=== PATIENT | male | born 1980 | race Two or more races ===

== ENCOUNTER 2020-06-17 23:08 | Inpatient (IN) | payer MEDICAID, OTHER ==
[~2020-06-17] VITALS: Ht 170.2 cm; Wt 106.1 kg
[2020-06-17] MEDS ORDERED: ALBU18HF2 INH (23:20)
[2020-06-17] MEDS ORDERED: ALBUTEROL SULFATE 8 GM HFA.AER.AD IH PRN (23:30)
[2020-06-17] MEDS ORDERED: IV NORMAL SALINE 1000 ML BAG IV ONE (23:30)
[2020-06-17] MEDS ORDERED: ONDANSETRON 4 MG/2 ML VIAL IV ONE (23:30)
[2020-06-17] MEDS ORDERED: PANTOPRAZOLE SODIUM 40 MG VIAL IV ONE (23:30)
[2020-06-17] MEDS ORDERED: levoFLOXacin 750 MG/D5W 150 ML PIGGYBACK IV ONE (23:30)
[2020-06-17] MEDS ORDERED: DEXAMETHASONE SOD PHOSPHATE 4 MG INJ IV ONE (23:30)
--- NOTE | 2020-06-17 23:30 | NUR ---
PATIENT BIB [facility] FROM HOME FOR C/O SOB. PATIENT IS COVID + X 1 WEEK AND HAS WORSENING SYMPOTOMS OF SOB. PATIENT O2 SAT ON THE FIELD ON RA WAS IN THE 80'S. PLACED ON SIMPLE MASK 10LITER AND O2 UP TO 97%.
[2020-06-17 23:57] LABS: BASOPHILS % (AUTO) 0.4 % (0.0-2.0); HEMATOCRIT 44.1 % (36.7-47.1); HEMOGLOBIN 14.8 g/dL (12.5-16.3); LYMPHOCYTES # (AUTO) 0.9 K/uL (20.0-40.0); LYMPHOCYTES % (AUTO) 20.5 % (20.5-51.5); MEAN CORPUSCULAR HEMOGLOBIN 29.8 uug (23.8-33.4); MEAN CORPUSCULAR HGB CONC 34 g/dL (32.5-36.3); MEAN CORPUSCULAR VOLUME 89.1 fL (73.0-96.2); MONOCYTES # (AUTO) 0.3 K/uL (2.0-10.0); MONOCYTES % (AUTO) 7.2 % (0.0-11.0); NEUTROPHILS % (AUTO) 71.9 % (38.5-71.5); PLATELET COUNT (AUTO) 168 K/uL (152-348); RED BLOOD CELL COUNT(AUTO) 4.95 MIL/uL (4.06-5.63); WHITE BLOOD COUNT (AUTO) 4.2 K/uL (3.6-10.2)
[2020-06-17 23:58] LABS: CREATININE 1.1 mg/dL (0.6-1.3); POTASSIUM 3.7 mmol/L (3.5-5.1)
[2020-06-18] MEDS ORDERED: PANTOPRAZOLE SODIUM 40 MG VIAL ONE ×2 (00:01→08:23)
[2020-06-18] MEDS ORDERED: DEXAMETHASONE SOD PHOSPHATE 10 MG INJ ONE (00:01)
[2020-06-18] MEDS ORDERED: levoFLOXacin 750MG/D5W 150 ML IV ONE (00:02)
[2020-06-18] MEDS ORDERED: ONDANSETRON 4 MG/2 ML VIAL ONE (00:02)
[2020-06-18 00:15] LABS: BILIRUBIN,TOTAL 0.5 mg/dL (0.2-1.0); TOTAL PROTEIN, SERUM 7.2 g/dL (6.4-8.2)
[2020-06-18] MEDS ORDERED: ENOXAPARIN SODIUM 30 MG/0.3 ML DISP.SYRIN SUBCUT ONE (01:00)
[2020-06-18] MEDS ORDERED: ENOXAPARIN SODIUM 30 MG/0.3 ML DISP.SYRIN ONE (01:14)
[2020-06-18 01:23] LABS: *BILIRUBIN,URIN NEGATIVE (NEGATIVE); *BLOOD, URINE NEGATIVE (NEGATIVE); *CLARITY,URINE CLEAR (CLEAR); *COLOR,URINE DARK YELLOW (YELLOW); *KETONES,URINE 1+ (NEGATIVE); LEUKOCYTE ESTERASE ,URINE NEGATIVE (NEGATIVE); NITRITE, URINE NEGATIVE (NEGATIVE); PH,URINE 6.5 (5.0-8.0); UGLUCOSE NEGATIVE (NEGATIVE)
--- NOTE | 2020-06-18 02:00 | NUR ---
DR Jenkins spoke with DR Tafoay regarding admission.
[2020-06-18] MEDS ORDERED: ALBUTEROL SULFATE 8 GM HFA.AER.AD IH PRN (07:00)
[2020-06-18] MEDS: PANTOPRAZOLE SODIUM 40 MG TABLET.DR PO SCH (07:00)
--- NOTE | 2020-06-18 07:05 | NUR ---
Recieved pt from [facility]. Pt in [facility]. Noted with SOB, on 15L NR mask. Pending admission to hospital.
[2020-06-18 08:16] LABS: BASOPHILS % (AUTO) 0.2 % (0.0-2.0); HEMATOCRIT 44.4 % (36.7-47.1); HEMOGLOBIN 14.7 g/dL (12.5-16.3); LYMPHOCYTES # (AUTO) 0.5 K/uL (20.0-40.0); MEAN CORPUSCULAR HEMOGLOBIN 29.7 uug (23.8-33.4); MEAN CORPUSCULAR HGB CONC 33 g/dL (32.5-36.3); MEAN CORPUSCULAR VOLUME 89.8 fL (73.0-96.2); MONOCYTES # (AUTO) 0.3 K/uL (2.0-10.0); MONOCYTES % (AUTO) 6.7 % (0.0-11.0); NEUTROPHILS # (AUTO) 3.8 K/uL (1.8-8.9); NEUTROPHILS % (AUTO) 83.1 % (38.5-71.5); PLATELET COUNT (AUTO) 201 K/uL (152-348); RED BLOOD CELL COUNT(AUTO) 4.95 MIL/uL (4.06-5.63); WHITE BLOOD COUNT (AUTO) 4.6 K/uL (3.6-10.2)
[2020-06-18] MEDS ORDERED: AZITHROMYCIN 500MG/ D5W 250ML IVPB **ER PYXIS ONLY IV ONE (08:23)
[2020-06-18 08:24] LABS: CREATININE 0.8 mg/dL (0.6-1.3); POTASSIUM 4.3 mmol/L (3.5-5.1)
[2020-06-18] MEDS: AZITHROMYCIN IV 500 MG in IV DEXTROSE 5% 250 ML IV SCH (08:30)
[2020-06-18] MEDS ORDERED: PANTOPRAZOLE SODIUM 40 MG TABLET.DR PO ONE (08:37)
[2020-06-18 09:03] LABS: BILIRUBIN,TOTAL 0.5 mg/dL (0.2-1.0); MAGNESIUM 2.4 mg/dL (1.8-2.4); PHOSPHOROUS 3.3 mg/dL (2.5-4.9); TOTAL PROTEIN, SERUM 7.3 g/dL (6.4-8.2)
--- NOTE | 2020-06-18 10:00 | NUR ---
Pt's zhane Dent [phone] provided with updates. Per pt ok to provide information to her. Pt's Radha, contact info
--- NOTE | 2020-06-18 12:23 | NUR ---
Pt noted to be tachypneic and when attempting to feed pt. 02 sat went down to 86%. Dr. Lee made aware, stated to ok for patient to start on hi-flow 02 at 100% and to titrate down. RT made aware.
--- NOTE | 2020-06-18 12:39 | NUR ---
Per Eleanor KIMBALL CN, stated that report has been given and patient is going to [facility]. Eleanor made aware that patient would be started on vapotherm d/t pt's increase work of breathing. Sung RT aware and will set up vapotherm in unit. Per Eleanor no further report to be given as she already gave the report. Packet requested from admitting.
--- NOTE | 2020-06-18 12:45 | NUR ---
ADMITTED FROM HOME VIA ER A 40 YO MALE CAME IN WITH SOB IN ER, ADMITTING DX POSITIVE COVID/PNEUMONIA. AWAKE ALERT AND ORIENTED X3, STILL SHORT OF BREATH ON RA, PLACED ON 40L/M VIA NASAL CANULA SATURATING 93-95%. ROUTINE ADMISSION ASSESSMENT INITIATED. DR RODRIGUEZ NOTIFIED OF ADMISSION. SR ON MONITOR
--- NOTE | 2020-06-18 12:55 | NUR ---
Pt taken to [facility], via dea on 15L of via NRB. No incident noted during transfer. Estefani KIMBALL stated she is the primary nurse. Pt placed on 15L via NRB while in room, while awaiting RT.
[2020-06-18 17:04] VITALS: BP 126/87
--- NOTE | 2020-06-18 17:49 | NUR ---
SEEN BY DR HOOK FOR PULMONARY EVAL, SEE NOTES
[2020-06-18 20:00] VITALS: BP 124/84
[2020-06-18] MEDS ORDERED: REMDESIVIR (CHARGED) 200 MG in IV NORMAL SALINE 210 ML IV ONE (20:00)
--- NOTE | 2020-06-18 20:05 | NUR ---
AWAKE,ALERT X3, 02 HI FLOW AT 40%, NO SOB, COMPLAINED OF LEVEL 2 CHEST PAIN AND GENERALIZED PAIN, NORCO I TAB PO GIVEN.IST DOSE OF RENDESEVIR GIVEN ,NO REACTION NOTED BP 118/70 AFTER BP.RESTING COMFORTABLY,
[2020-06-18] MEDS: DEXAMETHASONE SOD PHOSPHATE 4 MG INJ IV SCH (20:35)
[2020-06-18] MEDS: ENOXAPARIN SODIUM 40 MG/0.4 ML DISP.SYRIN SQ SCH (20:36)
[2020-06-18] MEDS: HYDROCODONE/APAP 5-325MG TABLET PO PRN (22:22)
[2020-06-19 00:58] VITALS: BP 128/84
[2020-06-19 04:00] VITALS: BP 121/84
--- NOTE | 2020-06-19 05:35 | NUR ---
slept at long intervals..pulse oximetry at 340% hi flow, 95.
[2020-06-19] MEDS: PANTOPRAZOLE SODIUM 40 MG TABLET.DR PO SCH (06:06)
[2020-06-19 06:52] LABS: BASOPHILS % (AUTO) 0.1 % (0.0-2.0); HEMATOCRIT 43.8 % (36.7-47.1); HEMOGLOBIN 14.3 g/dL (12.5-16.3); LYMPHOCYTES # (AUTO) 0.8 K/uL (20.0-40.0); LYMPHOCYTES % (AUTO) 15.5 % (20.5-51.5); MEAN CORPUSCULAR HEMOGLOBIN 29.6 uug (23.8-33.4); MEAN CORPUSCULAR HGB CONC 33 g/dL (32.5-36.3); MEAN CORPUSCULAR VOLUME 90.3 fL (73.0-96.2); MONOCYTES # (AUTO) 0.6 K/uL (2.0-10.0); MONOCYTES % (AUTO) 10.6 % (0.0-11.0); NEUTROPHILS # (AUTO) 3.8 K/uL (1.8-8.9); NEUTROPHILS % (AUTO) 73.8 % (38.5-71.5); PLATELET COUNT (AUTO) 269 K/uL (152-348); RED BLOOD CELL COUNT(AUTO) 4.85 MIL/uL (4.06-5.63); WHITE BLOOD COUNT (AUTO) 5.2 K/uL (3.6-10.2)
[2020-06-19 07:36] LABS: BILIRUBIN,DIRECT 0.2 mg/dL (0.0-0.2); BILIRUBIN,TOTAL 0.5 mg/dL (0.2-1.0); CREATININE 0.8 mg/dL (0.6-1.3); POTASSIUM 4.2 mmol/L (3.5-5.1); TOTAL PROTEIN, SERUM 7.2 g/dL (6.4-8.2)
[2020-06-19 08:47] VITALS: BP 125/81
[2020-06-19] MEDS: ONDANSETRON 4 MG/2 ML VIAL IV PRN (08:54)
[2020-06-19] MEDS: HYDROCODONE/APAP 5-325MG TABLET PO PRN (08:55)
[2020-06-19] MEDS: AZITHROMYCIN IV 500 MG in IV DEXTROSE 5% 250 ML IV SCH (10:03)
[2020-06-19 10:09] LABS: ABG BASE EXCESS 1.5 mmol/L; ABG HCO3 25.8 mmol/L; ABG PCO2 39.7 mmHg (35.0-45.0); ABG PH 7.431 (7.350-7.450); ABG PO2 105.2 mmHg (75.0-100.0); ABG SITE LEFT BRACHIAL; ABG TOTAL HEMOGLOBIN 14.9 G/dL (13.5-18.0); COHb 0.7 % (0.5-1.5); MetHb 0.3 % (0.0-1.5); O2Hb 97.3 % (94.0-97.0); VENT MODE HIGH FLOW
[2020-06-19 11:55] VITALS: BP 121/71
[2020-06-19 15:52] VITALS: BP 128/88
[2020-06-19 20:39] VITALS: BP 126/85
[2020-06-19] MEDS: ENOXAPARIN SODIUM 40 MG/0.4 ML DISP.SYRIN SQ SCH (20:39)
[2020-06-19] MEDS: DEXAMETHASONE SOD PHOSPHATE 4 MG INJ IV SCH (20:42)
[2020-06-19] MEDS: REMDESIVIR (CHARGED) 100 MG in IV NORMAL SALINE 100 ML IV SCH (20:43)
--- NOTE | 2020-06-19 21:45 | NUR ---
Received pt lying in bed. No acute distress noted. Vitals WNL on 40L high Flow @100% saturating @ 95%. Mild SOB noted upon exertion. RAC 18G IV intact and flushed. All due medication administered. Dose of remdesivir administered, no adverse reaction noted. BP 112/74. All needs attended too, snacks provided.. Safety measures and covid isolation maintained. Will continue to monitor.
[2020-06-20] VITALS (9 sets, daily range): BP systolic 105–118; BP diastolic 63–77
--- NOTE | 2020-06-20 00:10 | NUR ---
PLASMA TRANSFUSION STARTED,PRODUCT UNABLE TO SCAN ,[employer] NOTIFIED, VERBALIZED JUST TO USE PAPER. VITAL SIGNS STABLE.
--- NOTE | 2020-06-20 01:20 | NUR ---
Administered Convalescent Plasma, tolerated well, no adverse reactions noted. No acute distress noted. Denies any pain at the moment.Pt vitals WNL O2 saturation @97%. Patient is resting comfortably. Safety measures in place. Will continue to monitor through the night.
[2020-06-20] MEDS: PANTOPRAZOLE SODIUM 40 MG TABLET.DR PO SCH (06:10)
--- NOTE | 2020-06-20 07:10 | NUR ---
Received patient on bed, awake and alert, cooperative with care. Patient on hi flow at 30L via NC saturating at 97%. Patient has right antecubital IV access, intact and patent. Patient has no s/s of respiratory distress, no chest pain reported. Will continue to monitor.
[2020-06-20 07:11] LABS: BASOPHILS % (AUTO) 0.1 % (0.0-2.0); HEMATOCRIT 42.7 % (36.7-47.1); HEMOGLOBIN 14.2 g/dL (12.5-16.3); LYMPHOCYTES # (AUTO) 0.9 K/uL (20.0-40.0); LYMPHOCYTES % (AUTO) 14.9 % (20.5-51.5); MEAN CORPUSCULAR HEMOGLOBIN 29.9 uug (23.8-33.4); MEAN CORPUSCULAR HGB CONC 33 g/dL (32.5-36.3); MEAN CORPUSCULAR VOLUME 90.2 fL (73.0-96.2); MONOCYTES # (AUTO) 0.7 K/uL (2.0-10.0); MONOCYTES % (AUTO) 11.4 % (0.0-11.0); NEUTROPHILS # (AUTO) 4.7 K/uL (1.8-8.9); NEUTROPHILS % (AUTO) 73.6 % (38.5-71.5); PLATELET COUNT (AUTO) 316 K/uL (152-348); RED BLOOD CELL COUNT(AUTO) 4.74 MIL/uL (4.06-5.63); WHITE BLOOD COUNT (AUTO) 6.4 K/uL (3.6-10.2)
[2020-06-20 07:29] LABS: BILIRUBIN,DIRECT 0.1 mg/dL (0.0-0.2); BILIRUBIN,TOTAL 0.6 mg/dL (0.2-1.0); CREATININE 0.8 mg/dL (0.6-1.3); MAGNESIUM 2.4 mg/dL (1.8-2.4); POTASSIUM 4.3 mmol/L (3.5-5.1); TOTAL PROTEIN, SERUM 6.8 g/dL (6.4-8.2)
[2020-06-20] MEDS: AZITHROMYCIN IV 500 MG in IV DEXTROSE 5% 250 ML IV SCH (08:15)
--- NOTE | 2020-06-20 18:45 | NUR ---
Patient in bed, laying comfortably. No s/s of respiratory distress. No chest pain reported. Still on hi flow at 30LPM via NC, saturating at 96%. Right antecubital IV access, intact and patent. Medications tolerated well. Will endorse to night club manager nurse.
[2020-06-20] MEDS: ENOXAPARIN SODIUM 40 MG/0.4 ML DISP.SYRIN SQ SCH (20:26)
[2020-06-20] MEDS: ACETAMINOPHEN 325 MG TABLET PO PRN (20:27)
[2020-06-20] MEDS: DEXAMETHASONE SOD PHOSPHATE 4 MG INJ IV SCH (20:27)
[2020-06-20] MEDS: REMDESIVIR (CHARGED) 100 MG in IV NORMAL SALINE 100 ML IV SCH ×2 (20:27→20:29)
--- NOTE | 2020-06-20 20:30 | NUR ---
RECEIVED PATIENT AWAKE IN BED. A/O X4. DENIES PAIN OR DISCOMFORT. NO RESP. DISTRESS NOTED. ON TELE SR. ON O2 30L HIGH FLOW O2. CALL LIGHT IN REACH. ALL NEEDS ATTENDED, WILL CONTINUE TO MONITOR AND ASSESS.
[2020-06-21 00:51] VITALS: BP 122/79
[2020-06-21] MEDS: ZOLPIDEM 5 MG TABLET PO PRN (01:00)
[2020-06-21 05:54] VITALS: BP 113/70
[2020-06-21] MEDS: PANTOPRAZOLE SODIUM 40 MG TABLET.DR PO SCH (06:43)
[2020-06-21 06:51] LABS: BASOPHILS % (AUTO) 0.1 % (0.0-2.0); HEMATOCRIT 42.4 % (36.7-47.1); HEMOGLOBIN 14.1 g/dL (12.5-16.3); LYMPHOCYTES # (AUTO) 1.1 K/uL (20.0-40.0); LYMPHOCYTES % (AUTO) 12.8 % (20.5-51.5); MEAN CORPUSCULAR HEMOGLOBIN 29.8 uug (23.8-33.4); MEAN CORPUSCULAR HGB CONC 33 g/dL (32.5-36.3); MEAN CORPUSCULAR VOLUME 89.8 fL (73.0-96.2); MONOCYTES % (AUTO) 12.2 % (0.0-11.0); NEUTROPHILS # (AUTO) 6.2 K/uL (1.8-8.9); NEUTROPHILS % (AUTO) 74.9 % (38.5-71.5); PLATELET COUNT (AUTO) 331 K/uL (152-348); RED BLOOD CELL COUNT(AUTO) 4.72 MIL/uL (4.06-5.63); WHITE BLOOD COUNT (AUTO) 8.3 K/uL (3.6-10.2)
--- NOTE | 2020-06-21 07:00 | NUR ---
RECEIVED REPORT ON PT, PT RESTING IN BED. AWAKE ALERT AND ORIENTED X 4. PT HAS AN IV ON THE FOREARM 22G. PT ON HIGH FLOW O2 30L SATURATING AT 100%. NO SIGNS OF DISTRESS NOTED AT THIS TIME. PT ON COVID ISOLATION PRECAUTIONS, SAFETY PRECAUTIONS IN PLACE. BED IN LOW AND LOCK POSITION, WILL CONTINUE TO MONITOR.
[2020-06-21 07:06] LABS: BILIRUBIN,DIRECT 0.2 mg/dL (0.0-0.2); BILIRUBIN,TOTAL 0.7 mg/dL (0.2-1.0); CREATININE 0.8 mg/dL (0.6-1.3); MAGNESIUM 2.2 mg/dL (1.8-2.4); PHOSPHOROUS 4.2 mg/dL (2.5-4.9); POTASSIUM 4.1 mmol/L (3.5-5.1); TOTAL PROTEIN, SERUM 6.8 g/dL (6.4-8.2)
[2020-06-21] MEDS: AZITHROMYCIN IV 500 MG in IV DEXTROSE 5% 250 ML IV SCH (08:31)
[2020-06-21 11:53] VITALS: BP 102/64
--- NOTE | 2020-06-21 14:20 | NUR ---
Discontinued right forearm 22g IV. Midline was inserted on the left upper extremity 18g.
[2020-06-21] MEDS: ACETAMINOPHEN 325 MG TABLET PO PRN ×2 (15:25→20:35)
[2020-06-21 16:38] VITALS: BP 128/80
--- NOTE | 2020-06-21 18:05 | NUR ---
SPOKE TO PATIENT'S NIECE, GAVE UPDATE ON PATIENT. WILL CONTINUE TO MONITOR.
--- NOTE | 2020-06-21 18:22 | NUR ---
PATIENT IN BED RESTING, PATIENT ON HIGH FLOW TITRATED TO 25L, 100%, SATURATING AT 95%. NO SIGNS OF DISTRESS NOTED. LEFT UPPER EXTREMITY MIDLINE, 18G. SPUTUM CULTURE COLLECTED. BED IN LOW AND LOCKED POSITION, ISOLATION AND SAFETY PRECAUTIONS IN PLACE, WILL ENDORSE TO ONCOMING NURSE.
[2020-06-21 20:03] VITALS: BP 141/85
[2020-06-21] MEDS: ENOXAPARIN SODIUM 40 MG/0.4 ML DISP.SYRIN SQ SCH (20:17)
[2020-06-21] MEDS: DEXAMETHASONE SOD PHOSPHATE 4 MG INJ IV SCH (20:26)
--- NOTE | 2020-06-21 20:30 | NUR ---
PATIENT AWAKE IN BED. A/O X4. FAROESE SPEAKING, BUT ABLE TO MAKE NEEDS KNOWN. PATIENT STATED HE FEELS LIKE HE IS GETTING A FEVER. TEMPERATURE NOTED. 101.8, COOLING MEASURES APPLIED, TYLENOL 650MG PO PRN ADMINISTERED, URINE COLLECTED AND SENT TO LAB ORDERED PER MD. ALL OTHER VSS. ON HIGH FLOW 25L SATING 100%. DENIES ANY SOB. NO RESP. DISTRESS NOTED. CALL LIGHT IN REACH. ON ISOLATION FOR COVID. ALL NEEDS ATTENDED. WILL CONTINUE TO MONITOR AND ASSESS.
--- NOTE | 2020-06-21 22:15 | NUR ---
PATIENT AWAKE IN BED. TEMPERATURE 97.2. WILL CONTINUE TO MONITOR AND ASSESS.
[2020-06-22 00:07] VITALS: BP 117/74
[2020-06-22 04:03] VITALS: BP 115/71
[2020-06-22] MEDS: PANTOPRAZOLE SODIUM 40 MG TABLET.DR PO SCH (06:11)
--- NOTE | 2020-06-22 07:30 | NUR ---
received report on patient. pt alwake alert and oriented x4. patient resting in bed, High Flow O2 via NC 2L at 100%. no signs of distress noted. pt had a left upper extremity midline 18g. pt on isolation precautions. safety precautions in place. Will continue to monitor. Addendum: 06/22/20 at 1207 by LUCAS LOPEZ RN High Flow O2 via NC 20L at 100%
[2020-06-22 07:48] LABS: BASOPHILS % (AUTO) 0.1 % (0.0-2.0); EOSINOPHILS % (AUTO) 0.1 % (0.0-7.0); HEMATOCRIT 42.4 % (36.7-47.1); HEMOGLOBIN 14.5 g/dL (12.5-16.3); LYMPHOCYTES % (AUTO) 11.2 % (20.5-51.5); MEAN CORPUSCULAR HEMOGLOBIN 30.3 uug (23.8-33.4); MEAN CORPUSCULAR HGB CONC 34 g/dL (32.5-36.3); MEAN CORPUSCULAR VOLUME 88.6 fL (73.0-96.2); MONOCYTES # (AUTO) 0.8 K/uL (2.0-10.0); MONOCYTES % (AUTO) 9.1 % (0.0-11.0); NEUTROPHILS # (AUTO) 6.9 K/uL (1.8-8.9); NEUTROPHILS % (AUTO) 79.5 % (38.5-71.5); PLATELET COUNT (AUTO) 313 K/uL (152-348); RED BLOOD CELL COUNT(AUTO) 4.79 MIL/uL (4.06-5.63); WHITE BLOOD COUNT (AUTO) 8.7 K/uL (3.6-10.2)
[2020-06-22 08:16] LABS: BILIRUBIN,DIRECT 0.3 mg/dL (0.0-0.2); BILIRUBIN,TOTAL 0.7 mg/dL (0.2-1.0); CREATININE 0.8 mg/dL (0.6-1.3); MAGNESIUM 2.3 mg/dL (1.8-2.4); PHOSPHOROUS 3.8 mg/dL (2.5-4.9); POTASSIUM 4.3 mmol/L (3.5-5.1); TOTAL PROTEIN, SERUM 6.9 g/dL (6.4-8.2)
[2020-06-22] MEDS: AZITHROMYCIN IV 500 MG in IV DEXTROSE 5% 250 ML IV SCH (08:49)
[2020-06-22] MEDS: REMDESIVIR (CHARGED) 100 MG in IV NORMAL SALINE 100 ML IV SCH (10:54)
--- NOTE | 2020-06-22 11:50 | NUR ---
Patient's O2 was changed to nonrebreather at 15L, pt tolerating well. No signs of distress noted. Will continue to monitor.
[2020-06-22 12:59] VITALS: BP 113/74
[2020-06-22] MEDS: HYDROCODONE/APAP 5-325MG TABLET PO PRN ×3 (15:02→16:42)
[2020-06-22 16:23] VITALS: BP 136/83
--- NOTE | 2020-06-22 18:32 | NUR ---
Patient awake alert and oriented x 4. Patient on O2 via nonrebreather at 15L, saturating at 99%, no signs of distress noted at this time. Patient on a threat monitoring analyst, NSR. IV midline on the left upper extremity 18g. Pt. uses urinal at bedside, skin intact. COVID isolation and safety precautions in place. Will endorse to oncoming nurse.
[2020-06-22 20:21] VITALS: BP 134/86
--- NOTE | 2020-06-22 21:00 | NUR ---
Received patient in bed resting. AAOx4. Pt on 15L NRBM denies SOB. No s/s of acute distress noted at this time. Pt febrile 102.8, will administer medication per order and provide cooling measures. NENA midline patent and intact. quality control inspector in place. Isolation and safety precautions in place.
[2020-06-22] MEDS: ENOXAPARIN SODIUM 40 MG/0.4 ML DISP.SYRIN SQ SCH (21:17)
[2020-06-22] MEDS: DEXAMETHASONE SOD PHOSPHATE 4 MG INJ IV SCH (21:18)
[2020-06-22] MEDS: ACETAMINOPHEN 325 MG TABLET PO PRN (21:20)
[2020-06-23 00:06] VITALS: BP 122/78
[2020-06-23] MEDS: HYDROCODONE/APAP 5-325MG TABLET PO PRN ×3 (03:02→16:37)
[2020-06-23] MEDS: MAGNESIUM HYDROXIDE 30 ML LIQUID UDC PO PRN (03:09)
[2020-06-23 04:15] VITALS: BP 113/77
[2020-06-23] MEDS: PANTOPRAZOLE SODIUM 40 MG TABLET.DR PO SCH (06:04)
[2020-06-23 07:14] LABS: BASOPHILS % (AUTO) 0.1 % (0.0-2.0); HEMATOCRIT 42.2 % (36.7-47.1); HEMOGLOBIN 14.5 g/dL (12.5-16.3); LYMPHOCYTES # (AUTO) 0.7 K/uL (20.0-40.0); LYMPHOCYTES % (AUTO) 9.1 % (20.5-51.5); MEAN CORPUSCULAR HEMOGLOBIN 30.5 uug (23.8-33.4); MEAN CORPUSCULAR HGB CONC 34 g/dL (32.5-36.3); MEAN CORPUSCULAR VOLUME 88.6 fL (73.0-96.2); MONOCYTES # (AUTO) 0.6 K/uL (2.0-10.0); MONOCYTES % (AUTO) 7.6 % (0.0-11.0); NEUTROPHILS # (AUTO) 6.5 K/uL (1.8-8.9); NEUTROPHILS % (AUTO) 83.2 % (38.5-71.5); PLATELET COUNT (AUTO) 349 K/uL (152-348); RED BLOOD CELL COUNT(AUTO) 4.76 MIL/uL (4.06-5.63); WHITE BLOOD COUNT (AUTO) 7.8 K/uL (3.6-10.2)
[2020-06-23 07:21] LABS: CREATININE 0.8 mg/dL (0.6-1.3); MAGNESIUM 2.7 mg/dL (1.8-2.4); PHOSPHOROUS 3.9 mg/dL (2.5-4.9); POTASSIUM 4.9 mmol/L (3.5-5.1)
[2020-06-23 08:54] LABS: BILIRUBIN,DIRECT 0.5 mg/dL (0.0-0.2); BILIRUBIN,TOTAL 0.8 mg/dL (0.2-1.0); TOTAL PROTEIN, SERUM 6.7 g/dL (6.4-8.2)
[2020-06-23] MEDS: REMDESIVIR (CHARGED) 100 MG in IV NORMAL SALINE 100 ML IV SCH (09:55)
[2020-06-23 13:23] VITALS: BP 112/62
--- NOTE | 2020-06-23 16:35 | NUR ---
PT RECEIVED AWAKE ALERT AND RESPONSIVE ON 15LPM NON REBREATHER MASK SHOWING NO SIGNS OF RESPIRATORY DISTRESS. PT PLACED ON 6LPM NASAL CANULA WITH BUBBLE HUMIDIFIER AND IS TOLERATING IT FINE WITHOUT SOB. SPO2 MAINTAINING AT 94%. WILL CONTINUE TO MONITOR.
[2020-06-23 16:39] VITALS: BP 131/79
[2020-06-23] MEDS ORDERED: MIRALAX 17 GM POWD.PACK PO PRN (18:45)
[2020-06-23 20:00] VITALS: BP 122/77
[2020-06-23] MEDS: DEXAMETHASONE SOD PHOSPHATE 4 MG INJ IV SCH (20:28)
[2020-06-23] MEDS: ENOXAPARIN SODIUM 40 MG/0.4 ML DISP.SYRIN SQ SCH (20:28)
--- NOTE | 2020-06-23 20:30 | NUR ---
Patient is in bed, alert and oriented. On 15 LPM of O2 via nonrebreather mask. Saturation is 100%. Denies any c/o pain at this time. IV on NENA intact and patent. COVID isolation precaution enforced. Needs attended and met. Will continue to monitor.
[2020-06-23] MEDS: ACETAMINOPHEN 325 MG TABLET PO PRN (20:32)
[2020-06-23] MEDS: GUAIFENESIN/CODEINE 5 ML LIQUID UDC PO PRN (23:55)
[2020-06-23] MEDS: ZOLPIDEM 5 MG TABLET PO PRN (23:56)
[2020-06-24] VITALS (7 sets, daily range): BP systolic 98–134; BP diastolic 69–78
--- NOTE | 2020-06-24 00:15 | NUR ---
Patient was complaining of dry cough and difficulty sleeping. AIRCRAFT STRUCTURAL REPAIR MECHANIC notified and obtained order for Robitussin with codeine. Robitussin and Ambien given as ordered, will monitor for effectiveness.
--- NOTE | 2020-06-24 06:38 | NUR ---
Patient sleeping in bed, arousable to name. Remains on 15 LPM of O2 via NR mask. Saturating at 99%. Patient is afebrile. Denies any c/o pain at this time. On IVF at KVO, midline site on NENA intact and patent. Remains on COVID 19 precautions. Needs attended and met. Will continue to monitor.
[2020-06-24 06:45] LABS: BASOPHILS % (AUTO) 0.6 % (0.0-2.0); HEMATOCRIT 39.8 % (36.7-47.1); HEMOGLOBIN 13.8 g/dL (12.5-16.3); LYMPHOCYTES # (AUTO) 0.7 K/uL (20.0-40.0); LYMPHOCYTES % (AUTO) 8.6 % (20.5-51.5); MEAN CORPUSCULAR HEMOGLOBIN 30.7 uug (23.8-33.4); MEAN CORPUSCULAR HGB CONC 35 g/dL (32.5-36.3); MEAN CORPUSCULAR VOLUME 88.9 fL (73.0-96.2); MONOCYTES # (AUTO) 0.6 K/uL (2.0-10.0); MONOCYTES % (AUTO) 7.2 % (0.0-11.0); NEUTROPHILS # (AUTO) 6.6 K/uL (1.8-8.9); NEUTROPHILS % (AUTO) 83.6 % (38.5-71.5); PLATELET COUNT (AUTO) 331 K/uL (152-348); RED BLOOD CELL COUNT(AUTO) 4.48 MIL/uL (4.06-5.63); WHITE BLOOD COUNT (AUTO) 7.9 K/uL (3.6-10.2)
[2020-06-24] MEDS: PANTOPRAZOLE SODIUM 40 MG TABLET.DR PO SCH (06:47)
[2020-06-24 06:58] LABS: CREATININE 0.8 mg/dL (0.6-1.3); MAGNESIUM 2.3 mg/dL (1.8-2.4); PHOSPHOROUS 3.9 mg/dL (2.5-4.9); POTASSIUM 4.4 mmol/L (3.5-5.1)
[2020-06-24 07:03] LABS: BILIRUBIN,DIRECT 0.2 mg/dL (0.0-0.2); BILIRUBIN,TOTAL 0.6 mg/dL (0.2-1.0); TOTAL PROTEIN, SERUM 6.9 g/dL (6.4-8.2)
--- NOTE | 2020-06-24 08:00 | NUR ---
RESTING IN BED WITH O2 AT 15LITERS NRM WITH NO SOB AT THIS TIME ALERT AND VERBALLY RESPONSIVE DENIES DISCOMFORTS CALL LIGHTS AND PERSONAL BELONGINGS ARE WITHIN EASY REACH AT THIS TIME MADE COMFORTABLE WILL CONTINUE TO OBSERVE.
--- NOTE | 2020-06-24 13:29 | NUR ---
PATIENT SEEN AND EXAMINED BY DR PULIDO WITH NEW ORDERS AND NOTED
--- NOTE | 2020-06-24 15:06 | NUR ---
PATIENT SEEN AND EXAMINED BY DR HOOK WITH NEW ORDERS AND NOTED.
--- NOTE | 2020-06-24 18:00 | NUR ---
REMAIN ON NRM AT 15L/M WITH SATS AT 97-98 PERCENT WITH NO SHORTNESS OF BREATH AT THIS TIME REMAIN ON COVID ISOLATION AND PRECAUTION ORDERED NO SOB AT THIS TIME
--- NOTE | 2020-06-24 20:00 | NUR ---
Received patient lying in bed. AAOx4. Denies any pain. Noted with SOB when speaking. On O2 at 15LPM via non-rebreather mask in place. Complain of cough. Will provide cough meds per order. O2 sat at 99% at this time. Sinus tachy on tele at 120's-130's/min at this time. Midline on left upper arm intact and patent. COVID isolation precaution initiated. Safety measure initiated and call haines within reached
[2020-06-24] MEDS: GUAIFENESIN/CODEINE 5 ML LIQUID UDC PO PRN (20:38)
[2020-06-24] MEDS: ENOXAPARIN SODIUM 40 MG/0.4 ML DISP.SYRIN SQ SCH (20:38)
[2020-06-24] MEDS: DEXAMETHASONE SOD PHOSPHATE 4 MG INJ IV SCH (20:39)
[2020-06-24] MEDS: ACETAMINOPHEN 325 MG TABLET PO PRN (21:32)
--- NOTE | 2020-06-24 21:32 | NUR ---
PERSONNEL GENERALIST MANAGER reported patient with temp of 100.2 orally. Cooling measure initiated and Tylenol 650mg po given. Continue to monitor. Patient still sinus tachy on tele at 110/min. Continue to monitor.
--- NOTE | 2020-06-24 22:48 | NUR ---
Patient temp down to 99.1 orally at this time. Continue with cooling measure. Continue to monitor.
[2020-06-25 01:05] VITALS: BP 121/68
[2020-06-25] MEDS: GUAIFENESIN/CODEINE 5 ML LIQUID UDC PO PRN ×2 (04:24→22:50)
[2020-06-25 04:35] VITALS: BP 131/50
[2020-06-25] MEDS: ACETAMINOPHEN 325 MG TABLET PO PRN ×2 (04:52→18:47)
[2020-06-25] MEDS: PANTOPRAZOLE SODIUM 40 MG TABLET.DR PO SCH (06:02)
[2020-06-25] MEDS: BISACODYL 5 MG TABLET.DR PO PRN (06:03)
--- NOTE | 2020-06-25 06:34 | NUR ---
Afebrile at this time. Denies any pain. O2 at 15LPM via non-rebreather mask in place. Sinus tachy on tele at 114/min. Midline on left upper arm intact and patent. Needs attended to and met. COVID isolation precaution maintained. Safety measure maintained and call haines within reached.
[2020-06-25 07:45] LABS: BASOPHILS % (AUTO) 0.1 % (0.0-2.0); EOSINOPHILS # (AUTO) 0.1 K/uL (0.0-0.7); EOSINOPHILS % (AUTO) 1.1 % (0.0-7.0); HEMATOCRIT 38.9 % (36.7-47.1); HEMOGLOBIN 13.8 g/dL (12.5-16.3); LYMPHOCYTES # (AUTO) 0.8 K/uL (20.0-40.0); LYMPHOCYTES % (AUTO) 8.4 % (20.5-51.5); MEAN CORPUSCULAR HEMOGLOBIN 31.4 uug (23.8-33.4); MEAN CORPUSCULAR HGB CONC 36 g/dL (32.5-36.3); MEAN CORPUSCULAR VOLUME 88.3 fL (73.0-96.2); MONOCYTES # (AUTO) 0.6 K/uL (2.0-10.0); NEUTROPHILS # (AUTO) 7.5 K/uL (1.8-8.9); NEUTROPHILS % (AUTO) 83.4 % (38.5-71.5); PLATELET COUNT (AUTO) 330 K/uL (152-348); RED BLOOD CELL COUNT(AUTO) 4.41 MIL/uL (4.06-5.63)
[2020-06-25 08:13] LABS: BILIRUBIN,DIRECT 0.4 mg/dL (0.0-0.2); BILIRUBIN,TOTAL 0.9 mg/dL (0.2-1.0); CREATININE 0.9 mg/dL (0.6-1.3); MAGNESIUM 2.1 mg/dL (1.8-2.4); PHOSPHOROUS 3.1 mg/dL (2.5-4.9); POTASSIUM 3.8 mmol/L (3.5-5.1); TOTAL PROTEIN, SERUM 7.2 g/dL (6.4-8.2)
--- NOTE | 2020-06-25 09:00 | NUR ---
REMAIN ON NRM AT 15 LITERS WITH NO SOB AT THIS TIME ALERT AND ORIENTED AND VERBALLY RESPONSIVE CALL LIGHTS AND PERSONAL BELONGINGS ARE WITHIN EASY AT THIS TIME WILL CONTINUE TO OBSERVE.
[2020-06-25 11:44] VITALS: BP 126/87
--- NOTE | 2020-06-25 15:00 | NUR ---
DR HOOK HERE TO SEE PATIENT WITH NO NEW ORDERS AT THIS TIME.
[2020-06-25 16:08] VITALS: BP 126/79
[2020-06-25] MEDS: GUAIFENESIN/DEXTROMETHORPHAN 5 ML UDC PO PRN (18:47)
--- NOTE | 2020-06-25 18:57 | NUR ---
MEDICATED FOR C/O HEADACHE AND COUGH ORDERED MADE COMFORTABLE WILL CONTINUE TO OBSERVE.
[2020-06-25 20:21] VITALS: BP 121/75
[2020-06-25] MEDS: DEXAMETHASONE SOD PHOSPHATE 4 MG INJ IV SCH (20:47)
[2020-06-25] MEDS: ENOXAPARIN SODIUM 40 MG/0.4 ML DISP.SYRIN SQ SCH (20:48)
--- NOTE | 2020-06-25 21:00 | NUR ---
AWAKE ALERT AND ORIENTED STATED FEELING BETTER REMAIN ON O2 WITH NRM AT 15 LITERS WITH NO SOB AT THIS TIME REMAIN ON CONTACT ISOLATION AND PRECAUTION CALL LIGHTS AND P[ERSONAL BELONGINGS ARE WITHIN ESY REACH AT THIS TIME WILL CONTINUE TO OBSERVE.
[2020-06-26 00:28] VITALS: BP 105/71
[2020-06-26] MEDS: GUAIFENESIN/DEXTROMETHORPHAN 5 ML UDC PO PRN ×2 (03:24→16:22)
[2020-06-26 04:30] VITALS: BP 119/65
--- NOTE | 2020-06-26 06:11 | NUR ---
PT SLEPT INTERMITTENTLY. PRESCRIBED MEDICATION GIVEN AND PT TOLERATED IT WELL. PT ON SINUS RHYTHM. PT IN NO ACUTE RESPIRATORY DISTRESS. SAFETY AND COMFORT PROVIDED. ALL NEEDS ARE MET. WILL ENDORSE TO INCOMING NURSE FOR CONTINUITY OF CARE.
--- NOTE | 2020-06-26 06:11 | NUR ---
PRN COUGH MEDICATION GIVEN PER PT REQUEST. PT TOLERATED IT WELL.
[2020-06-26 06:40] LABS: BILIRUBIN,DIRECT 0.3 mg/dL (0.0-0.2); BILIRUBIN,TOTAL 0.6 mg/dL (0.2-1.0); TOTAL PROTEIN, SERUM 7.4 g/dL (6.4-8.2)
[2020-06-26] MEDS: PANTOPRAZOLE SODIUM 40 MG TABLET.DR PO SCH (06:44)
--- NOTE | 2020-06-26 08:30 | NUR ---
RECEIVED PATIENT IN BED AWAKE ALERT AND ORIENTED WITH O2 BY NON REBREATHER MASK AT 15L/M WITH SATS AT 94 PERCENT DENIES PAIN OR DISCOMFORTS AT THIS TIME CALL LIGHTS AND PERSONAL BELONGINGS ARE WITHIN EASY REACH MADE COMFORTABLE WILL CONTINUE TO OBSERVE.
[2020-06-26] MEDS: GUAIFENESIN/CODEINE 5 ML LIQUID UDC PO PRN ×2 (11:11→20:28)
[2020-06-26 12:30] VITALS: BP 110/68
[2020-06-26 16:00] VITALS: BP 127/67
--- NOTE | 2020-06-26 16:22 | NUR ---
CONTINUE TO HAVE ON AND OFF COUGH EPISODES MEDICATED WITH ROBITUSSIN ORDERED AND EFFECTIVE WILL CONTINUE TO OBSERVE.
--- NOTE | 2020-06-26 18:00 | NUR ---
RESTING REMAIN ON O2 BY NRM AT 15L/M WITH NO SOB AT THIS TIME MADE COMFORTABLE WILL CONTINUE TO OBSERVE.
[2020-06-26 20:24] VITALS: BP 104/63
[2020-06-26] MEDS: DEXAMETHASONE SOD PHOSPHATE 4 MG INJ IV SCH (20:28)
[2020-06-26] MEDS: ENOXAPARIN SODIUM 40 MG/0.4 ML DISP.SYRIN SQ SCH (20:29)
--- NOTE | 2020-06-26 21:00 | NUR ---
Received patient AAOx4. No s/s of acute distress noted at this time. Pt on 15L NRBM with O2 @ 98%, pt c/o persistent cough, will administer medications per order. Denies SOB at rest. route sales delivery drivers supervisor in place. NENA midline patent and intact. Safety and isolation precautions in place.
[2020-06-27 00:24] VITALS: BP 115/66
[2020-06-27] MEDS: GUAIFENESIN/DEXTROMETHORPHAN 5 ML UDC PO PRN ×2 (04:14→12:49)
[2020-06-27 04:24] VITALS: BP 115/66
[2020-06-27] MEDS: PANTOPRAZOLE SODIUM 40 MG TABLET.DR PO SCH (06:10)
--- NOTE | 2020-06-27 07:07 | NUR ---
Pt resting. Afebrile last night. No s/s of acute distress noted. Pt on 15L NRBM denies SOB. All needs were met and attended to. Safety and isolation precautions in place.
[2020-06-27 08:02] LABS: BASOPHILS # (AUTO) 0.1 K/uL (0.0-8.0); BASOPHILS % (AUTO) 0.8 % (0.0-2.0); EOSINOPHILS % (AUTO) 0.1 % (0.0-7.0); HEMATOCRIT 38.3 % (36.7-47.1); HEMOGLOBIN 13.3 g/dL (12.5-16.3); LYMPHOCYTES # (AUTO) 0.8 K/uL (20.0-40.0); LYMPHOCYTES % (AUTO) 7.8 % (20.5-51.5); MEAN CORPUSCULAR HGB CONC 35 g/dL (32.5-36.3); MEAN CORPUSCULAR VOLUME 89.5 fL (73.0-96.2); MONOCYTES # (AUTO) 0.7 K/uL (2.0-10.0); MONOCYTES % (AUTO) 6.6 % (0.0-11.0); NEUTROPHILS # (AUTO) 8.9 K/uL (1.8-8.9); NEUTROPHILS % (AUTO) 84.7 % (38.5-71.5); PLATELET COUNT (AUTO) 335 K/uL (152-348); RED BLOOD CELL COUNT(AUTO) 4.28 MIL/uL (4.06-5.63); WHITE BLOOD COUNT (AUTO) 10.5 K/uL (3.6-10.2)
[2020-06-27 09:04] LABS: CREATININE 0.9 mg/dL (0.6-1.3); MAGNESIUM 2.3 mg/dL (1.8-2.4); PHOSPHOROUS 4.2 mg/dL (2.5-4.9); POTASSIUM 4.2 mmol/L (3.5-5.1)
[2020-06-27 09:52] LABS: BILIRUBIN,DIRECT 0.3 mg/dL (0.0-0.2); BILIRUBIN,TOTAL 0.5 mg/dL (0.2-1.0); TOTAL PROTEIN, SERUM 7.6 g/dL (6.4-8.2)
[2020-06-27 12:00] VITALS: BP 129/81
[2020-06-27 16:00] VITALS: BP 125/76
--- NOTE | 2020-06-27 17:45 | NUR ---
Patient remains alert, oriented x 4, not in any form of distress, on 15LPM non-rebreather. Denies any pain. Patient complained of non-productive cough, given PRN cough medicine as ordered with noted relief. Needs attended to promptly. Call light and frequently used items placed within patient's reach. Will continue to monitor and will endorse accordingly.
[2020-06-27] MEDS: GUAIFENESIN/CODEINE 5 ML LIQUID UDC PO PRN (19:04)
[2020-06-27 20:00] VITALS: BP 130/71
[2020-06-27] MEDS: ENOXAPARIN SODIUM 40 MG/0.4 ML DISP.SYRIN SQ SCH (21:49)
[2020-06-27] MEDS: ZOLPIDEM 5 MG TABLET PO PRN (22:04)
[2020-06-27] MEDS: ACETAMINOPHEN 325 MG TABLET PO PRN (22:04)
[2020-06-28] VITALS: BP 121/75
[2020-06-28] MEDS: GUAIFENESIN/CODEINE 5 ML LIQUID UDC PO PRN (03:24)
[2020-06-28 04:00] VITALS: BP 124/75
[2020-06-28] MEDS: PANTOPRAZOLE SODIUM 40 MG TABLET.DR PO SCH (06:37)
[2020-06-28 08:13] LABS: BASOPHILS % (AUTO) 0.4 % (0.0-2.0); EOSINOPHILS # (AUTO) 0.1 K/uL (0.0-0.7); EOSINOPHILS % (AUTO) 0.7 % (0.0-7.0); HEMATOCRIT 39.2 % (36.7-47.1); HEMOGLOBIN 13.4 g/dL (12.5-16.3); LYMPHOCYTES % (AUTO) 10.3 % (20.5-51.5); MEAN CORPUSCULAR HEMOGLOBIN 30.7 uug (23.8-33.4); MEAN CORPUSCULAR HGB CONC 34 g/dL (32.5-36.3); MONOCYTES # (AUTO) 0.8 K/uL (2.0-10.0); MONOCYTES % (AUTO) 8.2 % (0.0-11.0); NEUTROPHILS # (AUTO) 8.1 K/uL (1.8-8.9); NEUTROPHILS % (AUTO) 80.4 % (38.5-71.5); PLATELET COUNT (AUTO) 312 K/uL (152-348); RED BLOOD CELL COUNT(AUTO) 4.35 MIL/uL (4.06-5.63)
[2020-06-28 08:18] LABS: BILIRUBIN,DIRECT 0.8 mg/dL (0.0-0.2); BILIRUBIN,TOTAL 1.2 mg/dL (0.2-1.0); TOTAL PROTEIN, SERUM 7.5 g/dL (6.4-8.2)
[2020-06-28 09:07] LABS: CREATININE 0.8 mg/dL (0.6-1.3); MAGNESIUM 2.3 mg/dL (1.8-2.4); PHOSPHOROUS 3.8 mg/dL (2.5-4.9)
[2020-06-28 11:00] VITALS: BP 137/82
[2020-06-28 15:00] VITALS: BP 118/70
[2020-06-28 20:16] VITALS: BP 124/81
[2020-06-28] MEDS: ENOXAPARIN SODIUM 40 MG/0.4 ML DISP.SYRIN SQ SCH (20:56)
[2020-06-28] MEDS: GUAIFENESIN/DEXTROMETHORPHAN 5 ML UDC PO PRN (21:33)
[2020-06-29] MEDS: ACETAMINOPHEN 325 MG TABLET PO PRN (00:04)
[2020-06-29] MEDS: ZOLPIDEM 5 MG TABLET PO PRN (00:04)
[2020-06-29 00:16] VITALS: BP 122/79
[2020-06-29 04:16] VITALS: BP 137/88
[2020-06-29] MEDS: GUAIFENESIN/DEXTROMETHORPHAN 5 ML UDC PO PRN ×2 (05:35→13:54)
[2020-06-29] MEDS: PANTOPRAZOLE SODIUM 40 MG TABLET.DR PO SCH (06:06)
[2020-06-29 07:36] LABS: BILIRUBIN,DIRECT 1.3 mg/dL (0.0-0.2); BILIRUBIN,TOTAL 1.8 mg/dL (0.2-1.0); TOTAL PROTEIN, SERUM 8.1 g/dL (6.4-8.2)
--- NOTE | 2020-06-29 09:00 | NUR ---
AWAKE ALERT AND ORIENTED DENIES PAIN OR DISCOMFORTS AT THIS TIME CONTINUE ON COVID ISOLATION AND PRECAUTION ON NRM AT 15L/M ORDERED RESTING IN BED NOT IN DISTRESS AT THIS TIME.
[2020-06-29] MEDS: GUAIFENESIN/CODEINE 5 ML LIQUID UDC PO PRN ×3 (10:48→23:40)
--- NOTE | 2020-06-29 12:00 | NUR ---
RESPIRATORY THERAPIST ATTEMPTED TO CHANGE PATIENT FROM THE NRM TO SIMPLE MASK BUT PATIENT STATED FEELS BETTER WITH THE NRM SO HE SWITCHED HIM BACK TO THE NRM AT 15 LITERS.
[2020-06-29 13:19] VITALS: BP 124/91
--- NOTE | 2020-06-29 15:31 | NUR ---
NOTIFIED DR ALBERT RE PATIENT STATED THAT THE ROBITUSSIN IS NOT EFFECTIVE ORDERED STATED TO STOP THE ROUTINE ORDER TO CHANGE THE ORDER FOR ROBITUSSIN AC TO 10 ML AND Q6H AND NOTED.
[2020-06-29 17:16] VITALS: BP 118/59
--- NOTE | 2020-06-29 18:30 | NUR ---
MEDICATED WITH ROBITUSSIN AC ORDERED CONTINUES TO HAVE ON AND OFF COUGH EPISODES WILL CONTINUE TO OBSERVE.
[2020-06-29 20:00] VITALS: BP 111/78
--- NOTE | 2020-06-29 20:00 | NUR ---
RECEIVED PATIENT AWAKE IN BED. A/O X4. [place] SPEAKING. ABLE TO MAKE NEEDS KNOWN. VS WNL. ON TELE ST. ON O2 15L NON-REBREATHER MASK. CALL LIGHT IN REACH. ALL NEEDS ATTENDED. WILL CONTINUE TO MONITOR AND ASSESS.
[2020-06-29] MEDS: ENOXAPARIN SODIUM 40 MG/0.4 ML DISP.SYRIN SQ SCH (21:36)
[2020-06-30 00:55] VITALS: BP 139/83
[2020-06-30 04:00] VITALS: BP 132/77
--- NOTE | 2020-06-30 04:13 | NUR ---
ENDING NOTE FOR 06/29 0600: PATIENT RESTING IN BED AAOX3. NO S/S OF ACUTE DISTRESS NOTED. V/S STABLE. NON REBREATHER 15 L. NSR ON TELE MONITOR. SAFETY MEASURES PROVIDED FOR PATIENT. GUAIFENESIN WITH CODEINE ADMINISTERED X1 PER PATIENT REQUEST FOR COUGH. TOLERATED WELL. WILL MONITOR AND ENDORSE.
[2020-06-30] MEDS: PANTOPRAZOLE SODIUM 40 MG TABLET.DR PO SCH (06:04)
[2020-06-30] MEDS: GUAIFENESIN/CODEINE 5 ML LIQUID UDC PO PRN ×3 (06:04→18:35)
--- NOTE | 2020-06-30 06:32 | NUR ---
PATIENT AWAKE IN BED. GIVEN ROBITUSSIN AC FOR COUGH. VSS. SLEPT AT INTERVALS. ON TELE ST. CALL LIGHT IN REACH. ALL NEEDS ATTENDED. WILL CONTINUE TO MONITOR AND ASSESS.
--- NOTE | 2020-06-30 08:00 | NUR ---
RECEIVED PATIENT IN BED AWAKE ALERT AND ORIENTED WITH SOME LANGUAGE BARRIERS BUT ABLE TO MAKE NEEDS KNOWN REMAIN ON NRM AT 15 LITERS WITH OCCASSIONAL COUGHING EPISODES ON COUGH MEDICATIONS ORDERED CALL LIGHTS AND PERSONAL BELONGINGS ARE PLACED WITHIN EASY REACH MADE COMFORTABLE WILL CONTINUE TO OBSERVE.
--- NOTE | 2020-06-30 09:22 | NUR ---
NEW ORDERS NOTED FROM DR BEAN AND CARRIED OUT.
[2020-06-30 10:22] LABS: CREATININE 0.8 mg/dL (0.6-1.3); POTASSIUM 4.3 mmol/L (3.5-5.1)
[2020-06-30] MEDS ORDERED: VANCOMYCIN IV 2,000 MG in IV DEXTROSE 5% 500 ML IV ONE (11:00)
[2020-06-30] MEDS: ACETAMINOPHEN 325 MG TABLET PO PRN ×2 (12:17→21:20)
--- NOTE | 2020-06-30 12:17 | NUR ---
TEMP AT THIS TIME IS 100.6 ORAL MEDICATED WITH TYLENOL ORDERED COOLING MEASURES STARTED PATIENT INSTRUCTED TO DRINK MORE ORAL FLUIDS AND HE EXPRESSED UNDERSTANDING.
[2020-06-30 12:36] VITALS: BP 130/79
[2020-06-30] MEDS: CEFEPIME HCL 2 G in IV DEXTROSE 5% 100 ML IV SCH ×2 (13:41→20:27)
[2020-06-30] MEDS ORDERED: CEFEPIME HCL 1 G in IV DEXTROSE 5% 50 ML IV SCH (14:00)
--- NOTE | 2020-06-30 14:15 | NUR ---
RECEIVED A CALL THAT PATI[facility] AND SPEAK TO THEM REGARDING PATIENTS CONDITION BUT THEY ARE NOT ON THE FACE SHEET TO NOTIFY SO I TOLD THEM THAT I AM NOT AVAILABLE TO GO DOWNSTAIRS AT THIS TIME AND THAT I NEEDED TO TALK TO SALTY THE PATIENT FIRST TO SEE WHO HE WANTS TO BE HIS SIGNAL OPERATOR TECHNICAL AND WILL CALL THEM BACK AT THE NUMBER THEY PROVIDED [phone].
--- NOTE | 2020-06-30 14:20 | NUR ---
SPOKE WITH SALTY THE PATIENT AND HE STATED THAT HE WANTS DERECK TO BE HIS DIRECTOR OF DEVELOPMENT CALLED THE SISTERS NUMBER AND SPOKE WITH JEM CAMARILLO AND THEY PROVIDED ME WITH [employer] NUMBER [phone] THIS NUMBER AND DERECK THE CONTACT HAS BEEN PROVIDED TO THE EMERGENCY COMPOSITE ENGINEER TO UPDATE PATIENTS FACE SHEET.
[2020-06-30 16:46] VITALS: BP 126/79
--- NOTE | 2020-06-30 18:30 | NUR ---
RESTING IN BED MEDICATED WITH ROBITUSSIN AC ORDERED AND HELPFUL REMAIN ON NRM STATED FEELS A LITTLE BIT BETTER BUT STILL COUGHING ON AND OFF GETS VERY EXERTED WITH THE COUGH MEDICATION DOES HELP BUT HEART RATE DOES GO UP BUT NOT SUSTAINED .WILL CONTINUE TO OBSERVE.
--- NOTE | 2020-06-30 19:46 | NUR ---
RECEIVED PT AWAKE, ALERT AND ORIENTEDX4. PT ON NONREBREATHER MASK 15L. PT IN NO ACUTE DISTRESS. IV INTACT. SAFETY AND COMFORT PROVIDED. NOTIFY DR. ALBERT THAT PT ON SINUS TACHY AT 150'S . DR. ALBERT ORDERED MORPHINE 2MG Q6HPRN. AND STAT EKG. WILL CONTINUE TO MONITOR.
[2020-06-30] MEDS: VANCOMYCIN IV 1,250 MG in IV DEXTROSE 5% 250 ML IV SCH (20:00)
[2020-06-30 21:09] VITALS: BP 127/85
[2020-06-30] MEDS: MORPHINE SULFATE 2 MG/1 ML DISP.SYRIN IV PRN (21:24)
--- NOTE | 2020-06-30 21:30 | NUR ---
NOTIFY DR. ALBERT REGARDING PT EKG RESULT. ORDERED STAT CHEST CT ANGIOGRAM. PT IN NO ACUTE DISTRESS. PT GIVEN TYLENOL FOR FEVER.
[2020-06-30] MEDS: ENOXAPARIN SODIUM 40 MG/0.4 ML DISP.SYRIN SQ SCH (21:59)
[2020-06-30] MEDS ORDERED: IOHEXOL 350 100 ML INFUS..BTL ONE (22:18)
[2020-06-30] MEDS ORDERED: SWABABLE VALVE TRANSFER SET EA MC ONE (22:18)
[2020-06-30] MEDS ORDERED: IV NORMAL SALINE 250 ML IV ONE (22:19)
--- NOTE | 2020-06-30 23:10 | NUR ---
NOTIFY RT REGARDING PT GOING TO RADIOLOGY DEPT. RT PLACED PT ON OXYGEN TANK. RN AND GENERAL EXPEDITOR BROUGHT THE PT TO RADIOLOGY DEPT. TELEGRAPHIC TYPEWRITER INSTALLER AWARE. CONSENT FORM SIGNED BY PT. PT ALERT, AWAKE AND ORIENTEDX4. PT IN NO ACUTE DISTRESS.WILL CONTINUE TO MONITOR.
--- NOTE | 2020-06-30 23:45 | NUR ---
WENT BACK TO THE PT ROOM FROM RADIOLOGY DEPT. REHANA AND JAMIR COLLINS ASSISTED THE PT TO THE ROOM. PT IN NO ACUTE DISTRESS. WILL CONTINUE TO MONITOR.
[2020-07-01] MEDS: ZOLPIDEM 5 MG TABLET PO PRN (00:11)
[2020-07-01] MEDS: GUAIFENESIN/CODEINE 5 ML LIQUID UDC PO PRN ×3 (00:40→18:37)
[2020-07-01 00:56] VITALS: BP 120/81
[2020-07-01] MEDS: CEFEPIME HCL 2 G in IV DEXTROSE 5% 100 ML IV SCH ×3 (03:04→20:20)
[2020-07-01] MEDS: VANCOMYCIN IV 1,250 MG in IV DEXTROSE 5% 250 ML IV SCH (03:36)
[2020-07-01] MEDS: ACETAMINOPHEN 325 MG TABLET PO PRN ×3 (03:38→20:20)
[2020-07-01] MEDS ORDERED: MORPHINE SULFATE 2 MG/1 ML DISP.SYRIN ONE (03:46)
[2020-07-01] MEDS: MORPHINE SULFATE 2 MG/1 ML DISP.SYRIN IV PRN ×3 (03:53→20:29)
--- NOTE | 2020-07-01 04:13 | NUR ---
AMBIEN PRN GIVEN AT 0011 , ROBITUSSIN AC GIVEN PRN AT 0040H FOR COUGH. TYLENOL PRN GIVEN AT 0338H FOR 100.9 TEMPERATURE. COOLING MEASURES DONE. WILL CONTINUE TO MONITOR.
[2020-07-01 04:37] VITALS: BP 137/81
[2020-07-01] MEDS: PANTOPRAZOLE SODIUM 40 MG TABLET.DR PO SCH (06:31)
[2020-07-01 06:41] LABS: BASOPHILS # (AUTO) 0.1 K/uL (0.0-8.0); BASOPHILS % (AUTO) 0.5 % (0.0-2.0); EOSINOPHILS # (AUTO) 0.1 K/uL (0.0-0.7); EOSINOPHILS % (AUTO) 0.6 % (0.0-7.0); HEMATOCRIT 37.6 % (36.7-47.1); HEMOGLOBIN 12.5 g/dL (12.5-16.3); LYMPHOCYTES # (AUTO) 0.6 K/uL (20.0-40.0); LYMPHOCYTES % (AUTO) 4.7 % (20.5-51.5); MEAN CORPUSCULAR HEMOGLOBIN 30.2 uug (23.8-33.4); MEAN CORPUSCULAR HGB CONC 33 g/dL (32.5-36.3); MEAN CORPUSCULAR VOLUME 90.7 fL (73.0-96.2); MONOCYTES # (AUTO) 1.5 K/uL (2.0-10.0); MONOCYTES % (AUTO) 11.2 % (0.0-11.0); PLATELET COUNT (AUTO) 307 K/uL (152-348); RED BLOOD CELL COUNT(AUTO) 4.15 MIL/uL (4.06-5.63); WHITE BLOOD COUNT (AUTO) 13.3 K/uL (3.6-10.2)
--- NOTE | 2020-07-01 06:49 | NUR ---
PT SLEPT INTERMITTENTLY. PT ON 15L NONREBREATHER MASK. PT TOLERATING IT WELL. PT IN NO ACUTE DISTRESS. IV INTACT. PRESCRIBED MEDICATION GIVEN AND PT TOLERATED IT WELL. PT GIVEN MORPHINE PRN AT 0353H . PT TOLERATED IT WELL. PT ON SINUS RHYTHM .PT AFEBRILE . SAFETY AND COMFORT PROVIDED. ALL NEEDS ARE MET . WILL ENDORSE TO INCOMING NURSE FOR CONTINUITY OF CARE.
--- NOTE | 2020-07-01 06:50 | NUR ---
PT SUSTAINING ON SINUS TACHYCARDIA BUT IN NO ACUTE DISTRESS. PT AFEBRILE.
[2020-07-01] MEDS: BISACODYL 5 MG TABLET.DR PO PRN ×2 (07:20→20:23)
--- NOTE | 2020-07-01 07:31 | NUR ---
NOTIFY STATE FIRE MARSHAL REGARDING PT SINUS TACHYCARDIA. WAITING FOR ORDERS. MORPHINE PRN GIVEN. PT IN NO ACUTE DISTRESS. ENDORSE TO INCOMING NURSE.
--- NOTE | 2020-07-01 07:32 | NUR ---
NEW ORDERS FOR LABS AND URINE RECEIVED FROM DR MCKEON AND CARRIED OUT.
[2020-07-01 07:37] LABS: BILIRUBIN,TOTAL 1.8 mg/dL (0.2-1.0); CREATININE 1.2 mg/dL (0.6-1.3); MAGNESIUM 2.7 mg/dL (1.8-2.4); PHOSPHOROUS 4.2 mg/dL (2.5-4.9); POTASSIUM 4.1 mmol/L (3.5-5.1); TOTAL PROTEIN, SERUM 8.2 g/dL (6.4-8.2)
[2020-07-01] MEDS: IV NS 1000 ML 1,000 ML IV PRN ×3 (10:58→21:44)
--- NOTE | 2020-07-01 11:13 | NUR ---
TEMP AT THIS TIME IS 102.0 ORAL COOLING MEASURES TYLENOL 650MG GIVEN AND DR ALBERT NOTIFIED AT 1130 HEART RATE IS 148 AT THIS TIME MD AWARE WITH NO NEW ORDERS REMAIN ON ATB AND IVF ORDERED WITH NO ADVERSE OR ALLERGIC REACTIONS AT THIS TIME.FLUIDS ENCOURAGED WILL CONTINUE TO OBSERVE AND PROVIDE COMFORT.
[2020-07-01 11:33] VITALS: BP 137/90
--- NOTE | 2020-07-01 12:49 | NUR ---
VANCO TROUGH IS 21.4 VANCO NOT GIVEN PER PHARMACY WILL RECHECH VANCO TROUGH TOMORROW AT 1300 URINE COLLECTED AND SENT TO THE LAB ORDERED
[2020-07-01 15:58] VITALS: BP 128/86
--- NOTE | 2020-07-01 18:13 | NUR ---
PATIENT SEEN BY DR HOOK WITH NEW ORDERS AND NOTED
--- NOTE | 2020-07-01 18:37 | NUR ---
MEDICATED WITH ROBITUSSIN AC FOR COUGH ORDERED.
--- NOTE | 2020-07-01 19:30 | NUR ---
RECEIVED PT AWAKE, ALERT ANDORIENTEDX3. PT ON 156L NONREBREATHER MASK. PT IN NO ACUTE DISTRESS. IV INTACT. SAFETY AND COMFORT PROVIDED. WILL CONTINUE TO MONITOR.
[2020-07-01 20:00] VITALS: BP 140/70
[2020-07-01] MEDS: ENOXAPARIN SODIUM 40 MG/0.4 ML DISP.SYRIN SQ SCH (20:51)
[2020-07-01] MEDS: VANCOMYCIN IV 1,000 MG in IV DEXTROSE 5% 250 ML IV SCH (21:44)
[2020-07-01 22:23] LABS: *BILIRUBIN,URIN NEGATIVE (NEGATIVE); *BLOOD, URINE 2+ (NEGATIVE); *CLARITY,URINE SLIGHTLY CLOUDY (CLEAR); *COLOR,URINE YELLOW (YELLOW); *KETONES,URINE NEGATIVE (NEGATIVE); LEUKOCYTE ESTERASE ,URINE NEGATIVE (NEGATIVE); NITRITE, URINE NEGATIVE (NEGATIVE); PH,URINE 5.5 (5.0-8.0); UGLUCOSE NEGATIVE (NEGATIVE)
[2020-07-02] VITALS: BP 142/77
[2020-07-02] MEDS: ONDANSETRON 4 MG/2 ML VIAL IV PRN (00:06)
[2020-07-02] MEDS: GUAIFENESIN/CODEINE 5 ML LIQUID UDC PO PRN ×4 (00:37→22:15)
[2020-07-02] MEDS: CEFEPIME HCL 2 G in IV DEXTROSE 5% 100 ML IV SCH ×3 (03:19→20:59)
[2020-07-02 04:00] VITALS: BP 120/78
[2020-07-02] MEDS: ACETAMINOPHEN 325 MG TABLET PO PRN ×3 (05:10→22:15)
[2020-07-02] MEDS: VANCOMYCIN IV 1,000 MG in IV DEXTROSE 5% 250 ML IV SCH ×3 (05:10→22:14)
[2020-07-02] MEDS: MORPHINE SULFATE 2 MG/1 ML DISP.SYRIN IV PRN ×2 (05:11→12:20)
[2020-07-02] MEDS: PANTOPRAZOLE SODIUM 40 MG TABLET.DR PO SCH (06:02)
--- NOTE | 2020-07-02 06:46 | NUR ---
PT SLEPT INTERMITTENTLY. PT IN NO ACUTE DISTRESS. PT ON 15L NONREBEATHER MASK. PRESCRIBED MEDICATION GIVEN AND PT TOLERATED IT WELL. PT ON SINUS SINUS TACHYCARDIA.DOCTOR AWARE OF HEART RHYTHM OF PT . PT GIVEN TYLENOL PRN AT 2020H AND 0510H OF 650MGAND MORPHINE PRN2MG AT 202H AND 0511H FOR ABDOMINAL PAIN. DULCOLAX TABLET PRN GIVEN AT 2023HAND GIVEN PRUNE JUICE TO PROMOTE BOWEL MOVEMENT. AT 0006H ZOFRAN PRN GIVEN FOR PT STATING HE IS FEELING DIZZY. ROBISTUSSIN AC GIVEN AT 0037H FOR COUGH. PT TOLERATED IT WELL. RECENT TEMPERATURE IS 100.1. COOLING MEASURES DONE. PT GIVEN SPONGE BATH. CHARGE NURSE AWARE. SAFETY AND COMFORT PROVIDED. ALL NEEDS ARE MET. WILL ENDORSE TO INCOMING NURSE FOR CONTINUITY OF CARE.
[2020-07-02 07:19] LABS: MAGNESIUM 2.6 mg/dL (1.8-2.4); PHOSPHOROUS 2.4 mg/dL (2.5-4.9); POTASSIUM 4.1 mmol/L (3.5-5.1); URIC ACID 1.9 mg/dL (3.5-7.2)
[2020-07-02 08:20] LABS: THYROID STIMULATING HORMONE 0.161 mIU/mL (0.358-3.740)
[2020-07-02] MEDS ORDERED: DEXAMETHASONE SOD PHOSPHATE 4 MG INJ IV SCH (09:30)
[2020-07-02 12:00] VITALS: BP 157/76
--- NOTE | 2020-07-02 12:23 | NUR ---
AWAKE ALERT VERBALLY RESPONDS TEMP 101 AT THIS TIME MEDICATED WITH TYLENOL ORDERED COOLING MEASURES STATED HAVING BODY ACHES HR AT 145 MEDICATED WITH MORPHINE ORDERED MADE COMFORTABLE PATIENT REMAIN ON COVID ISOLATION AND PRECAUTION WITH O2 BY NON REBREATHER AT 15 LITER/M WITH NO SOB AT THIS TIME REMAIN ON IVATB ORDERED WITH NO ADVERSE OR ALLERGIC REACTIONS AT THIS TIME CONTINUES TO HAVE ON AND OFF COUGH EPISODES MEDS GIVEN ORDERED AND REPORTED HELPFUL CALL LIGHTS AND PERSONAL BELONGINGS ARE WITHIN EASY REACH MADE COMFORTABLE WILL CONTINUE TO OBSERVE.
[2020-07-02] MEDS: IV NS 1000 ML 1,000 ML IV PRN (12:42)
[2020-07-02] MEDS ORDERED: NEUTRA PHOS PACKET PO ONE (15:30)
[2020-07-02 16:00] VITALS: BP 125/95
[2020-07-02] MEDS: DEXAMETHASONE SOD PHOSPHATE 4 MG INJ IV SCH ×2 (17:57→21:03)
--- NOTE | 2020-07-02 18:00 | NUR ---
PATIENT SEEN AND EXAMINED BY DR HOOK WITH NEW ORDERS AND NOTED.
[2020-07-02 18:11] LABS: BACTERIA,URINE FEW /HPF (NONE SEEN); WBC,URINE 0-3 /HPF (0-3)
[2020-07-02 18:12] LABS: SQUAMOUS EPITHELIAL CELL,UR FEW /HPF (NONE SEEN)
[2020-07-02] MEDS: ENOXAPARIN SODIUM 40 MG/0.4 ML DISP.SYRIN SQ SCH (21:02)
--- NOTE | 2020-07-02 21:48 | NUR ---
Awake alert and oriented x4 On O2 nonrebrether mask @ 15L. pulse ox 91% Temp 99.4 HR 135 respiration 25 On telemetry, patient sinus tachy. Kept comfortable. Patient having frequent cough, Robitussin given. IVF's infusing well via LUE midline. Tolerated well. No ill effects noted. Continent of bowel and bladder. No BM this shift. Will monitor patient.
[2020-07-03] VITALS (27 sets, daily range): BP systolic 92–193; BP diastolic 55–123
[2020-07-03] MEDS: CEFEPIME HCL 2 G in IV DEXTROSE 5% 100 ML IV SCH ×3 (04:27→21:23)
[2020-07-03] MEDS: GUAIFENESIN/CODEINE 5 ML LIQUID UDC PO PRN (05:30)
[2020-07-03] MEDS: VANCOMYCIN IV 1,000 MG in IV DEXTROSE 5% 250 ML IV SCH (05:31)
[2020-07-03] MEDS: DEXAMETHASONE SOD PHOSPHATE 4 MG INJ IV SCH ×3 (05:31→21:23)
[2020-07-03] MEDS: PANTOPRAZOLE SODIUM 40 MG TABLET.DR PO SCH (06:09)
--- NOTE | 2020-07-03 06:25 | NUR ---
Condition unchanged. On 100% nonrebreather mask, pulse ox 92% Patient been having frequent cough, Robitussin given. Voiding. Will monitor patient. No acute distress noted. Will monitor patient. Slept a short intervals.
[2020-07-03 07:12] LABS: CREATININE 1.1 mg/dL (0.6-1.3); PHOSPHOROUS 2.2 mg/dL (2.5-4.9); POTASSIUM 4.2 mmol/L (3.5-5.1)
[2020-07-03] MEDS ORDERED: METOPROLOL TARTRATE 25 MG TABLET PO SCH (09:00)
[2020-07-03] MEDS: METHIMAZOLE 5 MG TABLET PO SCH ×2 (09:00→09:48)
--- NOTE | 2020-07-03 10:08 | NUR ---
Patient has been having SOB, He is saturating at 86% on high flow oxygen and 15 L non rebreather. Made MD Khanna aware and he ordered ABGs. Awaiting results. Also contacted Behavioral Medical Director Dr Roach to make aware. He wants to put patient on BIPAP. Will continue to monitor.
[2020-07-03 10:12] LABS: ABG BASE EXCESS 9.7 mmol/L; ABG HCO3 38.4 mmol/L; ABG PCO2 76.6 mmHg (35.0-45.0); ABG PH 7.318 (7.350-7.450); ABG PO2 48.1 mmHg (75.0-100.0); ABG SITE LEFT RADIAL; ABG TOTAL HEMOGLOBIN 11.6 G/dL (13.5-18.0); COHb 0.7 % (0.5-1.5); MetHb 0.5 % (0.0-1.5); O2Hb 84.3 % (94.0-97.0); VENT MODE HF - Aquinox
[2020-07-03] MEDS: IV NS 1000 ML 1,000 ML IV PRN ×2 (11:06→13:41)
--- NOTE | 2020-07-03 11:17 | NUR ---
Patient is attempting to remove BIPAP multiple times. Tried reorienting patient, monitoring the patient more frequently. Made MD aware and an order for bilateral mittens was given. Also the MD want to let the Pulmonologists Dr Roach know patient is not tolerating BIPAP well and may need to be intubated based on ABG results. Will continue to monitor.
[2020-07-03] MEDS ORDERED: NOREPINEPHRINE BITARTRATE 8 MG in IV NORMAL SALINE 242 ML IV PRN (12:00)
--- NOTE | 2020-07-03 12:30 | NUR ---
Patient transferred to the ICU. Orders given by Dr. Roach to transfer and intubate patient. Patient family contacted by the ICU nurse Moraima. Report given and patient moved to ICU bed 4. All of patient belongings and chart was sent with him to the ICU unit.
--- NOTE | 2020-07-03 12:33 | NUR ---
Patient received from [facility] unit via own bed pt wheeled by RT's followed up later by RN's. Patient on BIPAP: R18, [id number]%, 21/05. saturation when attaches to bedside monitor reading 81-82%. Patient restless and agitated tachypneic with RR in the mid 30's. Patient addressed in Iranian and found to be AAOX2. Patient requested for next of kind and He stated "I want my to be called and informed and provided me with her # and told me her name is Radha burgos. Information confirmed with his cell phone at this time before placed on the ventilator pt. face-time with .
[2020-07-03] MEDS ORDERED: ETOMIDATE 20 MG/10 ML VIAL IV ONE (13:00)
[2020-07-03] MEDS ORDERED: SUCCINYLCHOLINE CHLORIDE 200 MG/10 ML VIAL IV ONE (13:00)
[2020-07-03] MEDS: PROPOFOL 100 ML IV PRN ×5 (13:39→23:22)
--- NOTE | 2020-07-03 13:47 | NUR ---
Ruy Brannon at bedside etomidate 20mg and Succinolcholyne 100mcg given. Patient intubated at the first try and placed on ETT 7.5 23LL A/C18, 100%FIO2, Tv 550 as ordered by roofing technician. PAtient started on versed, and fentanyl and propofol for sedation but remains with severe restlessness and agitation. ML to NENA patent. and new IV line started to RFA G20.
[2020-07-03] MEDS: FENTANYL CITRAT IV 1,000 MCG in IV NORMAL SALINE 80 ML IV PRN ×2 (13:59→23:33)
[2020-07-03] MEDS ORDERED: SODIUM PHOSPHATE MM 15 MMOL in IV NORMAL SALINE 250 ML IV ONE ×2 (14:00→16:00)
[2020-07-03] MEDS: MIDAZOLAM HCL 50 MG in IV NORMAL SALINE 40 ML IV PRN ×2 (14:01→19:30)
--- NOTE | 2020-07-03 14:44 | NUR ---
At this time Pt. remains restless with severe coughing, and shortness of breath. Fentanyl running at 25mcg, versed at 3mg/hr and propofol at 50mcg/kg/min. Patient on soft restrains bilateral and during phlebotomy draw patient somehow manage forcefully extubated himself. I was call in the room and pt. manually bag and Pt. immediately reintubated by Dr. Brannon who was immediately notified. Patient placed on same setting with ETT 7.5, and 23LL. follow up by chest X-ray confirmation.
[2020-07-03] MEDS ORDERED: FENTANYL CITRAT IV PRN (15:15)
[2020-07-03] MEDS ORDERED: NORMAL SALINE IV PRN (15:15)
--- NOTE | 2020-07-03 15:52 | NUR ---
1:40pm: This SW met with patient's Radha, who was in the hospital lobby, asking to see the patient. SW was called by Cigar Head Puncher Susanne, who informed this SW that patient's was crying and wanting to see the patient. Radha is Swazi-speaking only. BETHANIE met with Radha, with the help of employment security officer Randy, who translated. SW explained to Radha that visitations continue to be restricted at this time due to COVID-19 precautions. Radha also expressed frustration with receiving limited information about her 's status, and not having regular updates about her . SW informed Radha that per patient's records, patient has provided patient's brother Robert as his point of contact, and that patient had informed staff that patient would like his brother Robert to be the salesperson used cars. SW informed Radha that SW will speak with the Bonding Supervisor about Radha's concerns. Radha once again asked about visitation, and this SW once again informed Radha that visitations are restricted unless it is an end-of-life matter, at which time the physician's would be consulted regarding visitation. BETHANIE then spoke with Bonding Supervisor An aMaria regarding above. Ana Maria stated that she would follow-up with the patient's brother and regarding this matter. Soon thereafter, Ana Maria called this SW back and informed this SW that Ana Maria spoke with patient's brother Robert, , who stated that the reason Robert was appointed salesperson used cars was due to the fact that Robert spoke Danish, while patient's did not, and therefore communicating with Robert would be more efficient. Robert stated that patient's Radha is the responsible libertarian for all decision making, , and should be provided with updates on patient's condition. Ana Maria stated that Ana Maria would follow-up with patient's Radha.
[2020-07-03 17:33] LABS: ABG BASE EXCESS 8.2 mmol/L; ABG HCO3 36.5 mmol/L; ABG PCO2 73.4 mmHg (35.0-45.0); ABG PH 7.314 (7.350-7.450); ABG PO2 61.7 mmHg (75.0-100.0); ABG SITE RIGHT RADIAL; COHb 0.7 % (0.5-1.5); MetHb 0.5 % (0.0-1.5); O2Hb 90.5 % (94.0-97.0); VENT MODE VENT - A/C; VT, ABG 550 mL
--- NOTE | 2020-07-03 17:48 | NUR ---
ABG results notified to student services dean orders to increase RR to 24 received and implemented.
--- NOTE | 2020-07-03 19:20 | NUR ---
received patient sedated , on versed at 4, propofol 50 mcg , ns at 90 ml , ngt , placement check , soto intact , mid line intact left ua , 20 ga right hand , ac 24 p 12 , zlv102 % , tv 550
[2020-07-03] MEDS ORDERED: VANCOMYCIN IV 1,250 MG in IV DEXTROSE 5% 250 ML IV ONE (20:00)
[2020-07-03] MEDS: ENOXAPARIN SODIUM 40 MG/0.4 ML DISP.SYRIN SQ SCH (21:23)
--- NOTE | 2020-07-03 22:00 | NUR ---
awake , restless , diprivan and fentanyl and versed increased , reoriented unable to comprehend , levophed is off since 19: 30
[2020-07-03] MEDS ORDERED: PROPOFOL 100 ML IV PRN (23:00)
[2020-07-04] VITALS (27 sets, daily range): BP systolic 115–136; BP diastolic 51–93
--- NOTE | 2020-07-04 01:20 | NUR ---
PICC LINE NURSE IS HERE TO INSERT PICC LINE , CXR DONE
--- NOTE | 2020-07-04 01:41 | NUR ---
REPOSITIONING OF PICC LINE , DONE , CXR DONE FOR PLACEMENT VERIFICATION
--- NOTE | 2020-07-04 02:00 | NUR ---
Relief RN: Received handoff report from Caitlyn Beard RN. Patient in bed vital signs stable at BP 122/60 HR 102 sinus tach. RR 24 and O2 96%. IVF running and infusing patently. No signs of acute distress noted at this time, will continue to monitor.
[2020-07-04] MEDS: PROPOFOL 100 ML IV PRN ×12 (03:21→22:40)
[2020-07-04] MEDS: IV NS 1000 ML 1,000 ML IV PRN ×2 (03:36→23:19)
[2020-07-04] MEDS: VANCOMYCIN IV 1,000 MG in IV DEXTROSE 5% 250 ML IV SCH ×3 (03:39→20:18)
[2020-07-04] MEDS: CEFEPIME HCL 2 G in IV DEXTROSE 5% 100 ML IV SCH ×3 (03:39→19:36)
[2020-07-04] MEDS: MIDAZOLAM HCL 50 MG in IV NORMAL SALINE 40 ML IV PRN ×3 (04:56→23:34)
[2020-07-04 05:28] LABS: BASOPHILS % (AUTO) 0.1 % (0.0-2.0); HEMATOCRIT 27.6 % (36.7-47.1); LYMPHOCYTES # (AUTO) 0.9 K/uL (20.0-40.0); LYMPHOCYTES % (AUTO) 7.2 % (20.5-51.5); MEAN CORPUSCULAR HEMOGLOBIN 30.2 uug (23.8-33.4); MEAN CORPUSCULAR HGB CONC 33 g/dL (32.5-36.3); MEAN CORPUSCULAR VOLUME 92.3 fL (73.0-96.2); MONOCYTES # (AUTO) 0.9 K/uL (2.0-10.0); MONOCYTES % (AUTO) 7.2 % (0.0-11.0); NEUTROPHILS # (AUTO) 10.9 K/uL (1.8-8.9); NEUTROPHILS % (AUTO) 85.5 % (38.5-71.5); PLATELET COUNT (AUTO) 199 K/uL (152-348); RED BLOOD CELL COUNT(AUTO) 2.99 MIL/uL (4.06-5.63); WHITE BLOOD COUNT (AUTO) 12.7 K/uL (3.6-10.2)
[2020-07-04 05:41] LABS: CREATININE 0.8 mg/dL (0.6-1.3); MAGNESIUM 2.6 mg/dL (1.8-2.4); PHOSPHOROUS 2.3 mg/dL (2.5-4.9); POTASSIUM 4.1 mmol/L (3.5-5.1)
--- NOTE | 2020-07-04 06:00 | NUR ---
sedated , responds to deep pain , propofol at 100 mcg , fentany at 100 mcg , and versed at 7 mg , bp , 119 / 59 , hr is 85 , 97 on current vent settings , rr 24
[2020-07-04] MEDS: DEXAMETHASONE SOD PHOSPHATE 4 MG INJ IV SCH ×3 (06:55→21:09)
[2020-07-04] MEDS: PANTOPRAZOLE SODIUM 40 MG TABLET.DR PO SCH (06:59)
[2020-07-04 09:06] LABS: ABG BASE EXCESS 4.3 mmol/L; ABG HCO3 31.9 mmol/L; ABG PCO2 65.2 mmHg (35.0-45.0); ABG PH 7.307 (7.350-7.450); ABG PO2 75.6 mmHg (75.0-100.0); ABG SITE RIGHT RADIAL; ABG TOTAL HEMOGLOBIN 10.2 G/dL (13.5-18.0); COHb 0.2 % (0.5-1.5); MetHb 0.4 % (0.0-1.5); O2Hb 94.9 % (94.0-97.0); VENT MODE VENT - A/C; VT, ABG 550 mL
[2020-07-04] MEDS: METHIMAZOLE 5 MG TABLET PO SCH (09:10)
--- NOTE | 2020-07-04 09:11 | NUR ---
Attending physician Dr. Brito in the unit to see and examine pt. report given and orders to continue with care plan received.
[2020-07-04] MEDS: FENTANYL CITRAT IV 1,000 MCG in IV NORMAL SALINE 80 ML IV PRN (11:11)
[2020-07-04 13:31] LABS: ABG BASE EXCESS 8.4 mmol/L; ABG PCO2 77.9 mmHg (35.0-45.0); ABG PH 7.295 (7.350-7.450); ABG PO2 82.1 mmHg (75.0-100.0); ABG SITE RIGHT RADIAL; ABG TOTAL HEMOGLOBIN 10.6 G/dL (13.5-18.0); COHb 0.6 % (0.5-1.5); MetHb 0.4 % (0.0-1.5); O2Hb 95.3 % (94.0-97.0); VENT MODE VENT - A/C; VT, ABG 500 mL
[2020-07-04] MEDS: POTASSIUM PHOSPHATE MM 7.5 MMOL in IV NORMAL SALINE 97.5 ML IV SCH ×2 (15:44→17:34)
[2020-07-04] MEDS ORDERED: VITAL AF 1.2 1,000 ML LIQUID GT PRN (20:45)
[2020-07-04] MEDS: ENOXAPARIN SODIUM 40 MG/0.4 ML DISP.SYRIN SQ SCH (21:09)
--- NOTE | 2020-07-04 21:30 | NUR ---
Started NGT feeding with Vital AF @10ml/hr
[2020-07-04] MEDS: NORMAL SALINE IV PRN (22:05)
[2020-07-04] MEDS: FENTANYL CITRAT IV PRN (22:05)
[2020-07-05] VITALS (23 sets, daily range): BP systolic 90–130; BP diastolic 47–73
--- NOTE | 2020-07-05 | NUR ---
NGT feeding residual 0. Increased feeding rate to 25ml/hr
[2020-07-05] MEDS: PROPOFOL 100 ML IV PRN ×15 (00:20→23:27)
[2020-07-05] MEDS: CEFEPIME HCL 2 G in IV DEXTROSE 5% 100 ML IV SCH ×3 (03:56→20:03)
[2020-07-05] MEDS: VANCOMYCIN IV 1,000 MG in IV DEXTROSE 5% 250 ML IV SCH (03:57)
[2020-07-05 05:06] LABS: BASOPHILS % (AUTO) 0.4 % (0.0-2.0); HEMATOCRIT 27.3 % (36.7-47.1); LYMPHOCYTES # (AUTO) 0.7 K/uL (20.0-40.0); LYMPHOCYTES % (AUTO) 5.7 % (20.5-51.5); MEAN CORPUSCULAR HEMOGLOBIN 30.4 uug (23.8-33.4); MEAN CORPUSCULAR HGB CONC 33 g/dL (32.5-36.3); MEAN CORPUSCULAR VOLUME 92.2 fL (73.0-96.2); MONOCYTES # (AUTO) 0.9 K/uL (2.0-10.0); MONOCYTES % (AUTO) 7.6 % (0.0-11.0); NEUTROPHILS # (AUTO) 10.1 K/uL (1.8-8.9); NEUTROPHILS % (AUTO) 86.3 % (38.5-71.5); PLATELET COUNT (AUTO) 203 K/uL (152-348); RED BLOOD CELL COUNT(AUTO) 2.97 MIL/uL (4.06-5.63); WHITE BLOOD COUNT (AUTO) 11.7 K/uL (3.6-10.2)
[2020-07-05 05:23] LABS: BILIRUBIN,DIRECT 0.4 mg/dL (0.0-0.2); BILIRUBIN,TOTAL 0.5 mg/dL (0.2-1.0); CREATININE 0.8 mg/dL (0.6-1.3); MAGNESIUM 2.7 mg/dL (1.8-2.4); PHOSPHOROUS 3.2 mg/dL (2.5-4.9); POTASSIUM 4.7 mmol/L (3.5-5.1); TOTAL PROTEIN, SERUM 6.3 g/dL (6.4-8.2)
[2020-07-05] MEDS: DEXAMETHASONE SOD PHOSPHATE 4 MG INJ IV SCH ×3 (06:34→21:58)
[2020-07-05] MEDS: PANTOPRAZOLE SODIUM 40 MG TABLET.DR PO SCH (06:34)
--- NOTE | 2020-07-05 06:46 | NUR ---
Tolerating tube feed at 25ml/hr with 0 residual. rate increased to 40ml/hr.
--- NOTE | 2020-07-05 07:15 | NUR ---
Received report from pig lead melter helper nurse, patient intubated with ETT 7.5, 23cm at the lip line, TV 500 95% fio2 Peep12. Patient is sedated on Propofol, fentanyl, and versed. Todd intact, ng tube clamped on left nares. Patient has right upper arm PICC, and left upper arm midline. Patient is sinus rhythm on the monitor, saturation of 97%, scds on, bed in low position, side rails upx2. all alarms checked.
[2020-07-05] MEDS: METHIMAZOLE 5 MG TABLET PO SCH (07:47)
[2020-07-05] MEDS: MIDAZOLAM HCL 50 MG in IV NORMAL SALINE 40 ML IV PRN ×3 (08:40→23:33)
--- NOTE | 2020-07-05 08:45 | NUR ---
Patient seen by Dr. Brito, discussed blood sugars and bowel program. Order received for accuchecks with mild scale and colace.
[2020-07-05 08:48] LABS: ABG BASE EXCESS 7.9 mmol/L; ABG HCO3 36.5 mmol/L; ABG PCO2 78.7 mmHg (35.0-45.0); ABG PH 7.284 (7.350-7.450); ABG PO2 86.5 mmHg (75.0-100.0); ABG SITE RIGHT RADIAL; ABG TOTAL HEMOGLOBIN 9.9 G/dL (13.5-18.0); COHb 0.3 % (0.5-1.5); MetHb 0.4 % (0.0-1.5); O2Hb 95.6 % (94.0-97.0); VENT MODE VENT - A/C; VT, ABG 500 mL
[2020-07-05] MEDS ORDERED: DEXTROSE 50% 50 ML DISP.SYRIN IV PRN (09:00)
[2020-07-05] MEDS ORDERED: DOCUSATE SODIUM 100 MG CAPSULE PO SCH (09:00)
[2020-07-05] MEDS: PROTEIN SUPPLEMENT (PROSTAT) 30 ML LIQUID GT SCH ×2 (09:08→17:09)
[2020-07-05] MEDS: DOCUSATE SODIUM 100 MG/10 ML LIQUID UDC NG SCH (09:12)
[2020-07-05] MEDS: BLOOD SUGAR DIAGNOSTIC 1 EACH STRIP VI SCH ×4 (09:16→21:38)
[2020-07-05] MEDS: INSULIN REGULAR, HUMAN 300 UNIT/3 ML VIAL SQ PRN ×4 (09:19→21:39)
[2020-07-05] MEDS: VITAL AF 1.2 1,000 ML LIQUID GT PRN (10:33)
--- NOTE | 2020-07-05 13:31 | NUR ---
Patient was bucking the vent and Dr. Roach was notified, so he ordered vecuronium bromide drip.
[2020-07-05] MEDS: GUAIFENESIN/CODEINE 5 ML LIQUID UDC PO PRN (14:49)
[2020-07-05] MEDS ORDERED: VECURONIUM BROMIDE 50 MG in IV NORMAL SALINE 50 ML IV PRN (16:00)
[2020-07-05] MEDS: IV NS 1000 ML 1,000 ML IV PRN (17:09)
[2020-07-05] MEDS: VECURONIUM BROMIDE 50 MG in IV NORMAL SALINE 50 ML IV PRN ×2 (17:25→18:12)
--- NOTE | 2020-07-05 20:00 | NUR ---
RECEIVED PT.ORALLY INTUBATED TO VENT W/ SETTINGS OF AC-30, TV-500, FIO2-100%, PEEP-+12 W/ O2 SAT OF 97%. PT IS SEDATED W/ DIPRIVAN DRIP OF 100MCQ/KG/MIN ON NENA. TURNED OFF NORCURON DRIP TOF RESPONSE OF 0/0 W/ TOF LEVEL OF 10 STARTED @ 1900. ON FENTANYL DRIP 130MCQ/HR. VIA PICC LINE ON NIMCO. VERSED DRIP @ 7MG/HR ON R FA. IVF NS @ 50CC/HR .NGT ON R NARE CHECKED PLACEMENT & CHECKED RESIDUAL 150CC NOTED HOLD FDG WILL RECHECKED RESIDUAL IN 1 HR. AFEBRILE. BP STABLE.
[2020-07-05] MEDS: VANCOMYCIN IV 1,500 MG in IV DEXTROSE 5% 500 ML IV SCH (20:04)
[2020-07-05] MEDS: SENNOSIDES 1 TABLET NG SCH (20:29)
[2020-07-05] MEDS: ENOXAPARIN SODIUM 40 MG/0.4 ML DISP.SYRIN SQ SCH (20:31)
--- NOTE | 2020-07-05 21:00 | NUR ---
CHECKED TRAIN OF FOUR Q1HR & CHARTED.
[2020-07-05] MEDS: FENTANYL CITRAT IV PRN (23:17)
[2020-07-05] MEDS: NORMAL SALINE IV PRN (23:17)
[2020-07-06] VITALS (23 sets, daily range): BP systolic 101–125; BP diastolic 58–72
--- NOTE | 2020-07-06 | NUR ---
TRAIN OF FOUR CHECKED Q1HR. RESIDUAL CHECKED 100CC NOTED TUBE FDG REMAINS ON HOLD. REPOSITIONED W/ HOB ELEVATED.
[2020-07-06] MEDS: PROPOFOL 100 ML IV PRN ×13 (00:44→22:46)
--- NOTE | 2020-07-06 02:00 | NUR ---
NGT RESIDUAL 20CC, RESUMED TUBE FDG @ 40CC/HR. NO CHANGED OF TOF.
[2020-07-06] MEDS: CEFEPIME HCL 2 G in IV DEXTROSE 5% 100 ML IV SCH ×3 (03:33→20:14)
--- NOTE | 2020-07-06 04:00 | NUR ---
AM CARE DONE. ORAL CARE DONE. NGT RESIDUAL 20CC NOTED. CONT. TUBE FDG @ 40CC/HR. REPOSITIONED PT. W/ HOB ELEVATED.
--- NOTE | 2020-07-06 05:30 | NUR ---
repositioned after cxr done w/ hob elevated.
[2020-07-06] MEDS: PANTOPRAZOLE ORAL SUSPENSION 40 MG SUSPDR.PKT NG SCH (05:33)
[2020-07-06] MEDS: DEXAMETHASONE SOD PHOSPHATE 4 MG INJ IV SCH ×3 (05:33→22:02)
[2020-07-06] MEDS ORDERED: DEXTROSE 50% 50 ML DISP.SYRIN IV PRN (06:00)
[2020-07-06] MEDS ORDERED: ETOMIDATE 20 MG/10 ML VIAL MC ONE (06:17)
[2020-07-06] MEDS ORDERED: SUCCINYLCHOLINE CHLORIDE 200 MG/10 ML VIAL MC ONE (06:17)
[2020-07-06] MEDS: BLOOD SUGAR DIAGNOSTIC 1 EACH STRIP VI SCH ×3 (06:39→18:04)
[2020-07-06 06:42] LABS: BASOPHILS % (AUTO) 0.2 % (0.0-2.0); EOSINOPHILS % (AUTO) 0.2 % (0.0-7.0); HEMATOCRIT 30.1 % (36.7-47.1); HEMOGLOBIN 9.7 g/dL (12.5-16.3); MEAN CORPUSCULAR HEMOGLOBIN 30.4 uug (23.8-33.4); MEAN CORPUSCULAR HGB CONC 32 g/dL (32.5-36.3); MONOCYTES # (AUTO) 0.8 K/uL (2.0-10.0); MONOCYTES % (AUTO) 6.7 % (0.0-11.0); NEUTROPHILS # (AUTO) 10.4 K/uL (1.8-8.9); NEUTROPHILS % (AUTO) 84.9 % (38.5-71.5); PLATELET COUNT (AUTO) 203 K/uL (152-348); WHITE BLOOD COUNT (AUTO) 12.3 K/uL (3.6-10.2)
[2020-07-06] MEDS: INSULIN REGULAR, HUMAN 300 UNIT/3 ML VIAL SQ PRN ×3 (06:42→18:05)
[2020-07-06] MEDS: MIDAZOLAM HCL 50 MG in IV NORMAL SALINE 40 ML IV PRN ×3 (06:50→20:44)
--- NOTE | 2020-07-06 07:00 | NUR ---
Received patient from PM nurse. Patient Intubated with 7.5 Shiley 23cm at the lip. Vent settings: AC: 30 - Fio2: 100 - TV: 500 - PEEP: 12. Patient saturating 96%. Patients HR is in the 90s. Drips: Vecuronium: 0.2mcg/kg/hr -- Propofol: 100mcg -- Fentanyl: 130mcg -- Versed: 7mg -- 0.9 NS: 50cc/hr -- All lines patent upon assessment. Todd draining [place] yellow urine with good output (1200ml) reported from PM shift nurse. Patient has a Neuromuscular blocking agent and has TOF testing as well. Will continue plan of care. Continue to monitor and assess.
[2020-07-06 07:09] LABS: CREATININE 0.8 mg/dL (0.6-1.3); MAGNESIUM 2.7 mg/dL (1.8-2.4); PHOSPHOROUS 3.5 mg/dL (2.5-4.9); POTASSIUM 4.7 mmol/L (3.5-5.1)
[2020-07-06] MEDS: VANCOMYCIN IV 1,500 MG in IV DEXTROSE 5% 500 ML IV SCH (08:05)
[2020-07-06 08:08] LABS: ABG BASE EXCESS 7.1 mmol/L; ABG HCO3 36.9 mmol/L; ABG PH 7.231 (7.350-7.450); ABG PO2 91.9 mmHg (75.0-100.0); ABG SITE RIGHT RADIAL; ABG TOTAL HEMOGLOBIN 10.3 G/dL (13.5-18.0); COHb 0.6 % (0.5-1.5); MetHb 0.7 % (0.0-1.5); O2Hb 95.8 % (94.0-97.0); VENT MODE VENT - A/C; VT, ABG 500 mL
[2020-07-06] MEDS: METHIMAZOLE 5 MG TABLET PO SCH (08:33)
[2020-07-06] MEDS: DOCUSATE SODIUM 100 MG/10 ML LIQUID UDC NG SCH (08:33)
[2020-07-06] MEDS: PROTEIN SUPPLEMENT (PROSTAT) 30 ML LIQUID GT SCH ×2 (08:33→17:28)
--- NOTE | 2020-07-06 11:57 | NUR ---
Both Dr. Brito and Dr. Roach both have been in unit to assess and receive updates. Pertinent information given.
[2020-07-06 16:34] LABS: BAND % (MANUAL) 2 % (0-10); EOSINOPHILS % (MANUAL) 1 % (0-8); LYMPHOCYTES % (MANUAL) 14 % (20-40); MONOCYTES % (MANUAL) 3 % (2-10); NEUTROPHILS % (MANUAL) 79 % (42-75)
[2020-07-06] MEDS: NORMAL SALINE IV PRN (18:42)
[2020-07-06] MEDS: FENTANYL CITRAT IV PRN (18:42)
--- NOTE | 2020-07-06 19:01 | NUR ---
Handing patient off to PM nurse. Patient Intubated with 7.5 Shiley 23cm at the lip. Vent settings: AC: 30 - Fio2: 100 - TV: 500 - PEEP: 12. Patient saturating 96%. Patients HR is in the 90s. Drips: Propofol: 100mcg -- Fentanyl: 145mcg -- Versed: 7mg -- All lines patent upon assessment. Todd draining [place] yellow urine with good output (1500ml). Will continue plan of care. Continue to monitor and assess.
--- NOTE | 2020-07-06 20:00 | NUR ---
RECEIVED PT ORALLY INTUBATED TO VENT W/ SETTINGS OF AC-30, TV-500, FIO2-100%, PEEP-+12 W/ O2 SAT OF 100%. ON DIPRIVAN DRIP @ 100MCQ/KG/MIN ON NENA MIDLINE. FENTANYL DRIP @ 130MCQ/HR. VERSED DRIP @ 7MG/HR. NS @ 10CC/HR FOR IVPB MEDS. NGT ON R NARE CHECKED PLACEMENT & CHECKED RESIDUAL 20CC NOTED RESUMED TUBE FDG VITAL AF 1.2 @ 20CC/HR. CHECKED TOF 2/4 RESTARTED VECURONIUM BROMIDE DRIP @ 0.01MCQ/KG/MIN. AFEBRILE. BP STABLE. REPOSITIONED W/ HOB ELEVATED. Addendum: 07/06/20 at 2301 by SCOTT STERLING RN TOF 4/4 @ 1900 & 1999. THEN STARTED VECURONIUM BROMIDE 2 0.01MCQ/KG/MIN.
[2020-07-06] MEDS: SENNOSIDES 1 TABLET NG SCH (20:21)
[2020-07-06] MEDS: ENOXAPARIN SODIUM 40 MG/0.4 ML DISP.SYRIN SQ SCH (20:22)
[2020-07-07] VITALS (35 sets, daily range): BP systolic 109–149; BP diastolic 56–80
--- NOTE | 2020-07-07 | NUR ---
CHECKED RESIDUAL 20CC NOTED INCREASED TUBE FDG TO 30CC/H.
[2020-07-07] MEDS: BLOOD SUGAR DIAGNOSTIC 1 EACH STRIP VI SCH ×4 (00:13→17:59)
[2020-07-07] MEDS: PROPOFOL 100 ML IV PRN ×14 (00:33→22:36)
--- NOTE | 2020-07-07 04:00 | NUR ---
AM CARE DONE. ORAL CARE DONE. CHECKED RESIDUAL 10CC NOTED INCREASED TUBE FDG. TO 40CC/HR.
[2020-07-07] MEDS: CEFEPIME HCL 2 G in IV DEXTROSE 5% 100 ML IV SCH ×3 (04:32→20:00)
[2020-07-07] MEDS: MIDAZOLAM HCL 50 MG in IV NORMAL SALINE 40 ML IV PRN ×3 (04:41→21:01)
[2020-07-07] MEDS: IV NORMAL SALINE 250 ML IV PRN (04:46)
[2020-07-07] MEDS: PANTOPRAZOLE ORAL SUSPENSION 40 MG SUSPDR.PKT NG SCH (05:33)
[2020-07-07] MEDS: DEXAMETHASONE SOD PHOSPHATE 4 MG INJ IV SCH ×3 (05:33→21:29)
--- NOTE | 2020-07-07 06:00 | NUR ---
REPOSITIONED ON HIS R SIDE W/ HOB ELEVATED AFTER CXR DONE.
[2020-07-07 07:02] LABS: BASOPHILS % (AUTO) 0.2 % (0.0-2.0); EOSINOPHILS # (AUTO) 0.2 K/uL (0.0-0.7); EOSINOPHILS % (AUTO) 1.4 % (0.0-7.0); HEMATOCRIT 29.5 % (36.7-47.1); HEMOGLOBIN 9.6 g/dL (12.5-16.3); LYMPHOCYTES % (AUTO) 8.3 % (20.5-51.5); MEAN CORPUSCULAR HEMOGLOBIN 30.5 uug (23.8-33.4); MEAN CORPUSCULAR HGB CONC 33 g/dL (32.5-36.3); MEAN CORPUSCULAR VOLUME 93.6 fL (73.0-96.2); MONOCYTES # (AUTO) 0.6 K/uL (2.0-10.0); MONOCYTES % (AUTO) 4.9 % (0.0-11.0); NEUTROPHILS % (AUTO) 85.2 % (38.5-71.5); PLATELET COUNT (AUTO) 178 K/uL (152-348); RED BLOOD CELL COUNT(AUTO) 3.16 MIL/uL (4.06-5.63); WHITE BLOOD COUNT (AUTO) 11.8 K/uL (3.6-10.2)
[2020-07-07 07:24] LABS: CREATININE 0.9 mg/dL (0.6-1.3); MAGNESIUM 2.5 mg/dL (1.8-2.4); PHOSPHOROUS 2.6 mg/dL (2.5-4.9); POTASSIUM 4.9 mmol/L (3.5-5.1)
[2020-07-07] MEDS: METHIMAZOLE 5 MG TABLET PO SCH (08:49)
[2020-07-07] MEDS: DOCUSATE SODIUM 100 MG/10 ML LIQUID UDC NG SCH (08:49)
[2020-07-07] MEDS: PROTEIN SUPPLEMENT (PROSTAT) 30 ML LIQUID GT SCH ×2 (08:49→17:59)
[2020-07-07 08:56] LABS: ABG HCO3 42.3 mmol/L; ABG PCO2 99.2 mmHg (35.0-45.0); ABG PH 7.248 (7.350-7.450); ABG PO2 76.3 mmHg (75.0-100.0); ABG SITE RIGHT RADIAL; ABG TOTAL HEMOGLOBIN 10.5 G/dL (13.5-18.0); COHb 0.8 % (0.5-1.5); MetHb 0.5 % (0.0-1.5); O2Hb 93.8 % (94.0-97.0); VENT MODE VENT - A/C; VT, ABG 500 mL
[2020-07-07] MEDS: VECURONIUM BROMIDE 50 MG in IV NORMAL SALINE 50 ML IV PRN (11:09)
[2020-07-07] MEDS: INSULIN REGULAR, HUMAN 300 UNIT/3 ML VIAL SQ PRN ×2 (11:51→17:58)
[2020-07-07] MEDS: NORMAL SALINE IV PRN (12:34)
[2020-07-07] MEDS: FENTANYL CITRAT IV PRN (12:34)
--- NOTE | 2020-07-07 18:57 | NUR ---
Patient continues to be on ventilator with ETT 7.5, oxgyen saturation 100%, hemodynamically stable, afebrile, sedated on propofol, versed, and fentanyl, norcuron turned off at this time. Air mattress inflated, bed in low position, side rails upx2.
--- NOTE | 2020-07-07 19:10 | NUR ---
Received patient orally intubated ETT 7.5 @23cm at the lip. AC 30, Vt 500, Fio2 100%, PEEP 12. SAT 100%. Patient currently sedated with Propofol @100mcg/kg/min, Fentanyl @130mcg/hr, Versed @7mg/hr. Patient is also on neuromuscular blocking agent vecuronium but is currently off. Train of 4 conducted @1900 remins 0/4 on right ulnar nerve, vecuronium remains off at this time. NIMCO PICC line and NENA midline resent and patent. Right wrist 20g present and patent. Todd catheter present draining clear yellow urine.
[2020-07-07] MEDS: SENNOSIDES 1 TABLET NG SCH (21:28)
[2020-07-07] MEDS: MAGNESIUM HYDROXIDE 30 ML LIQUID UDC PO PRN (21:29)
[2020-07-07] MEDS: ENOXAPARIN SODIUM 40 MG/0.4 ML DISP.SYRIN SQ SCH (21:29)
[2020-07-08] VITALS (23 sets, daily range): BP systolic 118–175; BP diastolic 59–90
[2020-07-08] MEDS: PROPOFOL 100 ML IV PRN ×14 (00:27→22:46)
[2020-07-08] MEDS: BLOOD SUGAR DIAGNOSTIC 1 EACH STRIP VI SCH ×4 (00:48→17:29)
[2020-07-08] MEDS: INSULIN REGULAR, HUMAN 300 UNIT/3 ML VIAL SQ PRN ×3 (00:50→11:55)
[2020-07-08] MEDS: CEFEPIME HCL 2 G in IV DEXTROSE 5% 100 ML IV SCH ×3 (03:45→20:01)
[2020-07-08 05:22] LABS: MAGNESIUM 2.7 mg/dL (1.8-2.4); PHOSPHOROUS 4.8 mg/dL (2.5-4.9); POTASSIUM 4.8 mmol/L (3.5-5.1)
[2020-07-08 05:23] LABS: BASOPHILS # (AUTO) 0.1 K/uL (0.0-8.0); BASOPHILS % (AUTO) 0.6 % (0.0-2.0); EOSINOPHILS # (AUTO) 0.1 K/uL (0.0-0.7); EOSINOPHILS % (AUTO) 0.7 % (0.0-7.0); HEMATOCRIT 29.2 % (36.7-47.1); HEMOGLOBIN 9.4 g/dL (12.5-16.3); LYMPHOCYTES # (AUTO) 0.8 K/uL (20.0-40.0); LYMPHOCYTES % (AUTO) 7.6 % (20.5-51.5); MEAN CORPUSCULAR HEMOGLOBIN 30.7 uug (23.8-33.4); MEAN CORPUSCULAR HGB CONC 32 g/dL (32.5-36.3); MEAN CORPUSCULAR VOLUME 94.7 fL (73.0-96.2); MONOCYTES # (AUTO) 0.5 K/uL (2.0-10.0); MONOCYTES % (AUTO) 4.9 % (0.0-11.0); NEUTROPHILS # (AUTO) 8.9 K/uL (1.8-8.9); NEUTROPHILS % (AUTO) 86.2 % (38.5-71.5); PLATELET COUNT (AUTO) 147 K/uL (152-348); RED BLOOD CELL COUNT(AUTO) 3.08 MIL/uL (4.06-5.63); WHITE BLOOD COUNT (AUTO) 10.3 K/uL (3.6-10.2)
[2020-07-08] MEDS: IV NORMAL SALINE 250 ML IV PRN (05:23)
[2020-07-08] MEDS: MIDAZOLAM HCL 50 MG in IV NORMAL SALINE 40 ML IV PRN ×3 (05:24→18:56)
[2020-07-08] MEDS: DEXAMETHASONE SOD PHOSPHATE 4 MG INJ IV SCH ×3 (05:44→21:12)
[2020-07-08] MEDS: PANTOPRAZOLE ORAL SUSPENSION 40 MG SUSPDR.PKT NG SCH (05:44)
--- NOTE | 2020-07-08 07:45 | NUR ---
received pt from overnight stocker nurse. remains on propofol @100mcg, Fentanyl @130, Versed @7. Per report, pt on vercuronium but has been on hold.
[2020-07-08] MEDS: PROTEIN SUPPLEMENT (PROSTAT) 30 ML LIQUID GT SCH ×3 (08:11→17:12)
[2020-07-08] MEDS: METHIMAZOLE 5 MG TABLET PO SCH (08:11)
[2020-07-08] MEDS: DOCUSATE SODIUM 100 MG/10 ML LIQUID UDC NG SCH (08:11)
[2020-07-08] MEDS: VITAL AF 1.2 1,000 ML LIQUID GT PRN (08:15)
[2020-07-08 08:18] LABS: ABG BASE EXCESS 7.7 mmol/L; ABG HCO3 36.1 mmol/L; ABG PCO2 74.8 mmHg (35.0-45.0); ABG PH 7.301 (7.350-7.450); ABG PO2 64.7 mmHg (75.0-100.0); ABG SITE RIGHT RADIAL; ABG TOTAL HEMOGLOBIN 10.3 G/dL (13.5-18.0); COHb 0.9 % (0.5-1.5); MetHb 0.6 % (0.0-1.5); O2Hb 93.5 % (94.0-97.0); VENT MODE VENT - A/C 30; VT, ABG 500 mL
--- NOTE | 2020-07-08 08:30 | NUR ---
Dr. Khanna in the unit to see pt. full report given
[2020-07-08] MEDS: FENTANYL CITRAT IV PRN (09:01)
[2020-07-08] MEDS: NORMAL SALINE IV PRN (09:01)
--- NOTE | 2020-07-08 10:07 | NUR ---
Dr. Roach in the unit to see and assess pt, with new orders. full report given Addendum: 07/08/20 at 1134 by PATRICK EM RN also made aware that per report, pt has been on and off vercuronium. MD was asked if he wanted to continue or discontinue order and per MD, keep order for now.
--- NOTE | 2020-07-08 10:48 | NUR ---
spoke to african history professor. per RD, while pt on high dose propofol (currently on Propofol @100mcg = 63.6ml/hr), change TF rate to 20ml/hr x 22hrs and increase Pro-stat from BID to TID.
[2020-07-08] MEDS: VECURONIUM BROMIDE 50 MG in IV NORMAL SALINE 50 ML IV PRN (17:13)
--- NOTE | 2020-07-08 19:10 | NUR ---
Received patient orally intubated ETT 7.5 @23cm at the lip. AC 30, Vt 500, Fio2 70%, PEEP 12. SAT 92%. Patient currently sedated with Propofol @100mcg/kg/min, Fentanyl @130mcg/hr, Versed @7mg/hr. Patient is also on neuromuscular blocking agent vecuronium running @0.1mcg/kg/min. NIMCO PICC line and NENA midline resent and patent. Right wrist 20g present and patent. Todd catheter present draining clear yellow urine.
[2020-07-08] MEDS: SENNOSIDES 1 TABLET NG SCH (20:41)
[2020-07-08] MEDS: ENOXAPARIN SODIUM 40 MG/0.4 ML DISP.SYRIN SQ SCH (20:41)
--- NOTE | 2020-07-08 23:00 | NUR ---
When assessing the patient's train of four, there is an issue with using the radial and ulna nerves on this patient as the patient is becoming more edematous. The impulses from the nerve stimulator are not being transmitted to the nerves as efficiently as if the patient was in his baseline state without the edema. This is leading to incorrect assessments for determining an effective neuromuscular blockade. When assessing train of four using the facial nerves, there is little to no edema in this location and a strong 4/4 was easily achieved using a relatively low mA on the stimulator. Vecuronium needs to be titrated according to the train of four using the facial nerves on this patient. As of now the current dose rate of 0.1mcg/kg/min is insufficient.
--- NOTE | 2020-07-08 23:00 | NUR ---
TOF assessed at strong 4/4 using facial nerves. Vecuronium dose increased to 0.2mcg/kg/min
[2020-07-09] VITALS (49 sets, daily range): BP systolic 129–160; BP diastolic 55–93
--- NOTE | 2020-07-09 | NUR ---
TOF remains strong 4/4 on the facial nerves. Dose increased to 0.3mcg/kg/min
[2020-07-09] MEDS: ACETAMINOPHEN 325 MG TABLET PO PRN (00:19)
[2020-07-09] MEDS: BLOOD SUGAR DIAGNOSTIC 1 EACH STRIP VI SCH ×4 (00:20→17:28)
[2020-07-09] MEDS: PROPOFOL 100 ML IV PRN ×14 (00:33→22:49)
--- NOTE | 2020-07-09 01:00 | NUR ---
TOF assessed at strong 4/4 using facial nerves. Vecuronium dose increased to 0.4mcg/kg/min
--- NOTE | 2020-07-09 02:00 | NUR ---
TOF assessed at 4/4 using facial nerves. Vecuronium dose increased to 0.5mcg/kg/min
--- NOTE | 2020-07-09 03:00 | NUR ---
TOF assessed at 4/4 with fade using facial nerves. Vecuronium dose increased to 0.6mcg/kg/min
[2020-07-09] MEDS: CEFEPIME HCL 2 G in IV DEXTROSE 5% 100 ML IV SCH ×3 (04:13→20:56)
[2020-07-09] MEDS: MIDAZOLAM HCL 50 MG in IV NORMAL SALINE 40 ML IV PRN ×3 (05:10→21:40)
[2020-07-09] MEDS: PANTOPRAZOLE ORAL SUSPENSION 40 MG SUSPDR.PKT NG SCH (05:41)
[2020-07-09] MEDS: DEXAMETHASONE SOD PHOSPHATE 4 MG INJ IV SCH ×3 (05:41→21:10)
[2020-07-09] MEDS: NORMAL SALINE IV PRN (05:56)
[2020-07-09] MEDS: FENTANYL CITRAT IV PRN (05:56)
--- NOTE | 2020-07-09 06:00 | NUR ---
Proper neuromuscular blockade achieved with TOF @2/4 as ordered. Vecuronium currently running @0.7mcg/kg/min
[2020-07-09 06:46] LABS: BASOPHILS % (AUTO) 0.3 % (0.0-2.0); EOSINOPHILS # (AUTO) 0.1 K/uL (0.0-0.7); EOSINOPHILS % (AUTO) 1.3 % (0.0-7.0); HEMOGLOBIN 8.9 g/dL (12.5-16.3); LYMPHOCYTES # (AUTO) 1.7 K/uL (20.0-40.0); LYMPHOCYTES % (AUTO) 15.8 % (20.5-51.5); MEAN CORPUSCULAR HEMOGLOBIN 30.7 uug (23.8-33.4); MEAN CORPUSCULAR HGB CONC 33 g/dL (32.5-36.3); MEAN CORPUSCULAR VOLUME 92.8 fL (73.0-96.2); MONOCYTES # (AUTO) 0.8 K/uL (2.0-10.0); MONOCYTES % (AUTO) 7.1 % (0.0-11.0); NEUTROPHILS # (AUTO) 8.2 K/uL (1.8-8.9); NEUTROPHILS % (AUTO) 75.5 % (38.5-71.5); PLATELET COUNT (AUTO) 157 K/uL (152-348); RED BLOOD CELL COUNT(AUTO) 2.91 MIL/uL (4.06-5.63); WHITE BLOOD COUNT (AUTO) 10.9 K/uL (3.6-10.2)
[2020-07-09] MEDS: IV NORMAL SALINE 250 ML IV PRN (06:54)
--- NOTE | 2020-07-09 07:00 | NUR ---
Patient remains orally intubated ETT 7.5 @23cm at the lip. AC 30, Vt 500, Fio2 80%, PEEP 12. SAT 92%. Patient currently sedated with Propofol @100mcg/kg/min, Fentanyl @130mcg/hr, Versed @7mg/hr. Patient is also on neuromuscular blocking agent vecuronium running @0.7mcg/kg/min with TOF @2/4 at level 6. NIMCO PICC line and NENA midline present and patent. Right wrist 20g present and patent. Todd catheter present draining clear yellow urine with 1100 output.
[2020-07-09 07:11] LABS: CREATININE 1.4 mg/dL (0.6-1.3); MAGNESIUM 2.9 mg/dL (1.8-2.4); PHOSPHOROUS 3.7 mg/dL (2.5-4.9); POTASSIUM 4.6 mmol/L (3.5-5.1)
[2020-07-09] MEDS: METHIMAZOLE 5 MG TABLET PO SCH (08:29)
[2020-07-09] MEDS: DOCUSATE SODIUM 100 MG/10 ML LIQUID UDC NG SCH (08:29)
[2020-07-09] MEDS: PROTEIN SUPPLEMENT (PROSTAT) 30 ML LIQUID GT SCH ×3 (08:30→17:28)
[2020-07-09 08:57] LABS: ABG BASE EXCESS 7.8 mmol/L; ABG HCO3 35.6 mmol/L; ABG PCO2 71.5 mmHg (35.0-45.0); ABG PH 7.315 (7.350-7.450); ABG SITE RIGHT RADIAL; ABG TOTAL HEMOGLOBIN 9.4 G/dL (13.5-18.0); COHb 1.1 % (0.5-1.5); MetHb 0.4 % (0.0-1.5); O2Hb 87.9 % (94.0-97.0); VENT MODE VENT - A/C; VT, ABG 500 mL
[2020-07-09] MEDS: VECURONIUM BROMIDE 50 MG in IV NORMAL SALINE 50 ML IV PRN ×2 (13:36→23:13)
--- NOTE | 2020-07-09 19:10 | NUR ---
RECEIVED PATIENT SEDATED , ON PROPOFOL 100MCG , VERSED AT 7 MG , VECURONIUM 0.7 MG , FENTANYL AT 130 , NG T INTACT , PLACEMENT AND RESIDUAL CHECKED , FEEDING RUNNING . MEHTA AND PICC LINE AND MID LINE INTACT
[2020-07-09] MEDS: SENNOSIDES 1 TABLET NG SCH (20:56)
[2020-07-09] MEDS: ENOXAPARIN SODIUM 40 MG/0.4 ML DISP.SYRIN SQ SCH (20:56)
[2020-07-10] VITALS (47 sets, daily range): BP systolic 122–155; BP diastolic 60–93
[2020-07-10] MEDS: PROPOFOL 100 ML IV PRN ×13 (00:23→23:11)
[2020-07-10] MEDS: BLOOD SUGAR DIAGNOSTIC 1 EACH STRIP VI SCH ×4 (00:26→18:57)
[2020-07-10] MEDS: INSULIN REGULAR, HUMAN 300 UNIT/3 ML VIAL SQ PRN ×2 (00:28→06:45)
[2020-07-10] MEDS: FENTANYL CITRAT IV PRN ×2 (00:32→20:57)
[2020-07-10] MEDS: NORMAL SALINE IV PRN ×2 (00:32→20:57)
--- NOTE | 2020-07-10 00:57 | NUR ---
vecuronium is turned off , no response on train of four , will check on one hour
[2020-07-10] MEDS: CEFEPIME HCL 2 G in IV DEXTROSE 5% 100 ML IV SCH ×3 (04:41→20:09)
[2020-07-10] MEDS: MIDAZOLAM HCL 50 MG in IV NORMAL SALINE 40 ML IV PRN ×3 (04:42→22:31)
[2020-07-10 05:33] LABS: BASOPHILS # (AUTO) 0.2 K/uL (0.0-8.0); BASOPHILS % (AUTO) 1.8 % (0.0-2.0); EOSINOPHILS % (AUTO) 0.2 % (0.0-7.0); HEMATOCRIT 28.1 % (36.7-47.1); HEMOGLOBIN 9.2 g/dL (12.5-16.3); LYMPHOCYTES # (AUTO) 1.4 K/uL (20.0-40.0); LYMPHOCYTES % (AUTO) 10.3 % (20.5-51.5); MEAN CORPUSCULAR HEMOGLOBIN 30.4 uug (23.8-33.4); MEAN CORPUSCULAR HGB CONC 33 g/dL (32.5-36.3); MONOCYTES # (AUTO) 0.9 K/uL (2.0-10.0); MONOCYTES % (AUTO) 6.4 % (0.0-11.0); NEUTROPHILS # (AUTO) 11.4 K/uL (1.8-8.9); NEUTROPHILS % (AUTO) 81.3 % (38.5-71.5); PLATELET COUNT (AUTO) 186 K/uL (152-348); RED BLOOD CELL COUNT(AUTO) 3.02 MIL/uL (4.06-5.63)
[2020-07-10] MEDS: PANTOPRAZOLE ORAL SUSPENSION 40 MG SUSPDR.PKT NG SCH (05:35)
[2020-07-10] MEDS: DEXAMETHASONE SOD PHOSPHATE 4 MG INJ IV SCH ×3 (05:35→21:13)
[2020-07-10 05:44] LABS: CREATININE 1.4 mg/dL (0.6-1.3); MAGNESIUM 3.2 mg/dL (1.8-2.4); PHOSPHOROUS 5.3 mg/dL (2.5-4.9); POTASSIUM 5.1 mmol/L (3.5-5.1)
--- NOTE | 2020-07-10 06:00 | NUR ---
sedated , on propofol at 100 mcg , fentnyl , 130 mcg , versed at 7mg , vecuronium at 0.1 mcg , same vent settings , tof done 4/4 , no fever , soto anf picc line intact
[2020-07-10] MEDS: METHIMAZOLE 5 MG TABLET PO SCH (07:57)
[2020-07-10] MEDS: PROTEIN SUPPLEMENT (PROSTAT) 30 ML LIQUID GT SCH ×3 (07:57→18:56)
[2020-07-10] MEDS: DOCUSATE SODIUM 100 MG/10 ML LIQUID UDC NG SCH (07:57)
[2020-07-10] MEDS ORDERED: FUROSEMIDE 20 MG/2 ML VIAL IV ONE (09:00)
[2020-07-10 09:11] LABS: ABG BASE EXCESS 6.9 mmol/L; ABG HCO3 35.8 mmol/L; ABG PCO2 80.6 mmHg (35.0-45.0); ABG PH 7.265 (7.350-7.450); ABG PO2 57.2 mmHg (75.0-100.0); ABG SITE RIGHT RADIAL; ABG TOTAL HEMOGLOBIN 9.9 G/dL (13.5-18.0); COHb 0.8 % (0.5-1.5); MetHb 0.5 % (0.0-1.5); O2Hb 87.3 % (94.0-97.0); VENT MODE VENT - A/C; VT, ABG 500 mL
[2020-07-10] MEDS: VECURONIUM BROMIDE 50 MG in IV NORMAL SALINE 50 ML IV PRN (10:06)
[2020-07-10] MEDS ORDERED: VITAL AF 1.2 1,000 ML LIQUID GT PRN (11:45)
[2020-07-10] MEDS: SENNOSIDES 1 TABLET NG SCH (20:26)
[2020-07-10] MEDS: ENOXAPARIN SODIUM 40 MG/0.4 ML DISP.SYRIN SQ SCH (20:29)
[2020-07-11] VITALS (46 sets, daily range): BP systolic 118–159; BP diastolic 63–88
[2020-07-11] MEDS: BLOOD SUGAR DIAGNOSTIC 1 EACH STRIP VI SCH ×4 (00:07→17:57)
[2020-07-11] MEDS: PROPOFOL 100 ML IV PRN ×12 (00:28→23:01)
[2020-07-11] MEDS: CEFEPIME HCL 2 G in IV DEXTROSE 5% 100 ML IV SCH ×3 (03:01→20:03)
[2020-07-11] MEDS: MIDAZOLAM HCL 50 MG in IV NORMAL SALINE 40 ML IV PRN ×3 (04:25→18:58)
[2020-07-11] MEDS: VECURONIUM BROMIDE 50 MG in IV NORMAL SALINE 50 ML IV PRN ×2 (04:32→17:27)
[2020-07-11 05:10] LABS: BASOPHILS % (AUTO) 0.3 % (0.0-2.0); EOSINOPHILS % (AUTO) 0.1 % (0.0-7.0); HEMATOCRIT 29.1 % (36.7-47.1); HEMOGLOBIN 9.4 g/dL (12.5-16.3); LYMPHOCYTES # (AUTO) 1.4 K/uL (20.0-40.0); LYMPHOCYTES % (AUTO) 11.8 % (20.5-51.5); MEAN CORPUSCULAR HEMOGLOBIN 30.2 uug (23.8-33.4); MEAN CORPUSCULAR HGB CONC 32 g/dL (32.5-36.3); MEAN CORPUSCULAR VOLUME 93.4 fL (73.0-96.2); MONOCYTES # (AUTO) 0.8 K/uL (2.0-10.0); MONOCYTES % (AUTO) 6.7 % (0.0-11.0); NEUTROPHILS # (AUTO) 9.3 K/uL (1.8-8.9); NEUTROPHILS % (AUTO) 81.1 % (38.5-71.5); PLATELET COUNT (AUTO) 170 K/uL (152-348); RED BLOOD CELL COUNT(AUTO) 3.11 MIL/uL (4.06-5.63); WHITE BLOOD COUNT (AUTO) 11.5 K/uL (3.6-10.2)
[2020-07-11] MEDS: PANTOPRAZOLE ORAL SUSPENSION 40 MG SUSPDR.PKT NG SCH (05:14)
[2020-07-11] MEDS: DEXAMETHASONE SOD PHOSPHATE 4 MG INJ IV SCH ×3 (05:15→22:08)
[2020-07-11 05:20] LABS: BILIRUBIN,TOTAL 0.6 mg/dL (0.2-1.0); CREATININE 1.6 mg/dL (0.6-1.3); MAGNESIUM 2.8 mg/dL (1.8-2.4); PHOSPHOROUS 4.7 mg/dL (2.5-4.9); POTASSIUM 4.3 mmol/L (3.5-5.1); TOTAL PROTEIN, SERUM 6.9 g/dL (6.4-8.2)
[2020-07-11 05:25] LABS: THYROID STIMULATING HORMONE 0.293 mIU/mL (0.358-3.740)
[2020-07-11] MEDS: IV NORMAL SALINE 250 ML IV PRN (06:08)
[2020-07-11 06:17] LABS: BAND % (MANUAL) 24 % (0-10); LYMPHOCYTES % (MANUAL) 17 % (20-40); METAMYELOCYTES % 8 % (0-1); MONOCYTES % (MANUAL) 4 % (2-10); MYELOCYTES % 2 % (0-0); NEUTROPHILS % (MANUAL) 45 % (42-75)
--- NOTE | 2020-07-11 07:30 | NUR ---
Cardiology services, Dr. Acosta in the unit to see and examine pt. report given. Orders to continue with care plan received.
[2020-07-11] MEDS: METHIMAZOLE 5 MG TABLET PO SCH (08:02)
[2020-07-11] MEDS: PROTEIN SUPPLEMENT (PROSTAT) 30 ML LIQUID GT SCH ×3 (08:02→17:26)
[2020-07-11] MEDS: DOCUSATE SODIUM 100 MG/10 ML LIQUID UDC NG SCH (08:02)
--- NOTE | 2020-07-11 09:06 | NUR ---
nephrology services, Dr. Bear in the unit to see and examine pt. report given see order hx.
[2020-07-11 09:26] LABS: ABG HCO3 37.5 mmol/L; ABG PCO2 85.8 mmHg (35.0-45.0); ABG PH 7.258 (7.350-7.450); ABG PO2 55.9 mmHg (75.0-100.0); ABG SITE RIGHT RADIAL; ABG TOTAL HEMOGLOBIN 10.6 G/dL (13.5-18.0); COHb 0.8 % (0.5-1.5); MetHb 0.4 % (0.0-1.5); O2Hb 85.9 % (94.0-97.0); VENT MODE VENT - A/C; VT, ABG 500 mL
[2020-07-11] MEDS ORDERED: BUMETANIDE INJ 4 MG in IV DEXTROSE 5% 24 ML IV ONE (10:00)
[2020-07-11] MEDS: NORMAL SALINE IV PRN (17:27)
[2020-07-11] MEDS: FENTANYL CITRAT IV PRN (17:27)
--- NOTE | 2020-07-11 19:00 | NUR ---
Received patient orally intubated ETT 7.5 @23cm at the lip. AC 30, Vt 500, Fio2 80%, PEEP 12. SAT 98%. Patient currently sedated with Propofol @80mcg/kg/min, Fentanyl @130mcg/hr, Versed @7mg/hr. Patient is also on neuromuscular blocking agent vecuronium running @0.7mcg/kg/min. TOF currently 4/4 measured at this time. NIMCO PICC line and present with one lumen occluded and not being used, the other two patent and being used. NENA midline patent. Right wrist 20g present and patent. Todd catheter present draining clear yellow urine. Flexi-seal recently placed as tubing is clean and no fecal matter in the collection bag. Fecal matter is present in the tube closer to the patient and appears soft, but not quite liquid in consistency. Skin is clear. NGT present and feeding running. Vital AF 1.2 @20mL/Hr.
[2020-07-11] MEDS: SENNOSIDES 1 TABLET NG SCH (21:07)
[2020-07-11] MEDS: ENOXAPARIN SODIUM 40 MG/0.4 ML DISP.SYRIN SQ SCH (21:08)
[2020-07-12] VITALS (33 sets, daily range): BP systolic 110–156; BP diastolic 58–83
[2020-07-12] MEDS: BLOOD SUGAR DIAGNOSTIC 1 EACH STRIP VI SCH ×5 (00:04→23:54)
[2020-07-12] MEDS: PROPOFOL 100 ML IV PRN ×11 (01:01→22:21)
[2020-07-12] MEDS: CEFEPIME HCL 2 G in IV DEXTROSE 5% 100 ML IV SCH ×3 (03:31→20:07)
[2020-07-12] MEDS: IV NORMAL SALINE 250 ML IV PRN (03:31)
--- NOTE | 2020-07-12 05:05 | NUR ---
Ventilator suffered mechanical failure. Patient ventilated with a BVM with appropriate PEEP valve until new ventilator brought up. Patient did not suffer any desaturation as this failure occurred when the RT was in the room and she was able to change the patient over to BVM immediately.
[2020-07-12 05:12] LABS: BASOPHILS # (AUTO) 0.1 K/uL (0.0-8.0); BASOPHILS % (AUTO) 0.6 % (0.0-2.0); EOSINOPHILS # (AUTO) 0.1 K/uL (0.0-0.7); EOSINOPHILS % (AUTO) 0.5 % (0.0-7.0); HEMATOCRIT 28.3 % (36.7-47.1); HEMOGLOBIN 9.1 g/dL (12.5-16.3); LYMPHOCYTES # (AUTO) 1.9 K/uL (20.0-40.0); LYMPHOCYTES % (AUTO) 13.2 % (20.5-51.5); MEAN CORPUSCULAR HEMOGLOBIN 29.9 uug (23.8-33.4); MEAN CORPUSCULAR HGB CONC 32 g/dL (32.5-36.3); MEAN CORPUSCULAR VOLUME 93.1 fL (73.0-96.2); MONOCYTES # (AUTO) 0.9 K/uL (2.0-10.0); MONOCYTES % (AUTO) 6.1 % (0.0-11.0); NEUTROPHILS # (AUTO) 11.2 K/uL (1.8-8.9); NEUTROPHILS % (AUTO) 79.6 % (38.5-71.5); PLATELET COUNT (AUTO) 191 K/uL (152-348); RED BLOOD CELL COUNT(AUTO) 3.05 MIL/uL (4.06-5.63)
[2020-07-12] MEDS: VECURONIUM BROMIDE 50 MG in IV NORMAL SALINE 50 ML IV PRN ×2 (05:21→14:57)
[2020-07-12 05:44] LABS: BILIRUBIN,DIRECT 0.3 mg/dL (0.0-0.2); BILIRUBIN,TOTAL 0.7 mg/dL (0.2-1.0); CREATININE 1.5 mg/dL (0.6-1.3); MAGNESIUM 2.7 mg/dL (1.8-2.4); PHOSPHOROUS 3.7 mg/dL (2.5-4.9); POTASSIUM 3.8 mmol/L (3.5-5.1); TOTAL PROTEIN, SERUM 6.7 g/dL (6.4-8.2)
[2020-07-12] MEDS: MIDAZOLAM HCL 50 MG in IV NORMAL SALINE 40 ML IV PRN ×3 (05:46→21:22)
[2020-07-12] MEDS: DEXAMETHASONE SOD PHOSPHATE 4 MG INJ IV SCH ×3 (05:47→21:30)
[2020-07-12] MEDS: PANTOPRAZOLE ORAL SUSPENSION 40 MG SUSPDR.PKT NG SCH (05:47)
[2020-07-12] MEDS: PROTEIN SUPPLEMENT (PROSTAT) 30 ML LIQUID GT SCH ×3 (08:07→17:53)
[2020-07-12] MEDS: DOCUSATE SODIUM 100 MG/10 ML LIQUID UDC NG SCH (08:07)
[2020-07-12] MEDS: METHIMAZOLE 5 MG TABLET NG SCH (08:07)
[2020-07-12 08:14] LABS: ABG BASE EXCESS 4.6 mmol/L; ABG HCO3 34.8 mmol/L; ABG PCO2 89.5 mmHg (35.0-45.0); ABG PH 7.207 (7.350-7.450); ABG PO2 67.2 mmHg (75.0-100.0); ABG SITE RIGHT RADIAL; ABG TOTAL HEMOGLOBIN 11.1 G/dL (13.5-18.0); COHb 1.1 % (0.5-1.5); MetHb 0.6 % (0.0-1.5); O2Hb 89.5 % (94.0-97.0); VENT MODE VENT - A/C; VT, ABG 500 mL
--- NOTE | 2020-07-12 12:00 | NUR ---
Patient seen by nephrology services, N.P. no new orders received.
[2020-07-12] MEDS: FENTANYL CITRAT IV PRN (13:17)
[2020-07-12] MEDS: NORMAL SALINE IV PRN (13:17)
--- NOTE | 2020-07-12 14:00 | NUR ---
Pulmonary servicedDr. Roach in the unit to see and examine pt. report given. See order hx.
[2020-07-12] MEDS: ACETAMINOPHEN 325 MG TABLET PO PRN (15:51)
[2020-07-12] MEDS: MORPHINE SULFATE 2 MG/1 ML DISP.SYRIN IV PRN (16:00)
--- NOTE | 2020-07-12 19:29 | NUR ---
received patient sedated on propofol a 80 mcg , fentanyl at 130 mcg , versed 7 mg , vecuronium 1 mcg , ngt at vital af at 20 ml . placement and residual check , no fever , soto , picc line , and mid line intact , ac 30 , tv 500 , p 12 , 80 %
--- NOTE | 2020-07-12 19:50 | NUR ---
vecuronium is turned off , checked tof started at level 5 till level 10 , no response used facial and hand
[2020-07-12] MEDS: SENNOSIDES 1 TABLET NG SCH (20:20)
[2020-07-12] MEDS: ENOXAPARIN SODIUM 40 MG/0.4 ML DISP.SYRIN SQ SCH (20:20)
[2020-07-12] MEDS: INSULIN REGULAR, HUMAN 300 UNIT/3 ML VIAL SQ PRN (23:54)
--- NOTE | 2020-07-12 23:55 | NUR ---
vecuronium restarted at 0.1 mcg level done at 6 facial , 09/01
[2020-07-13] VITALS (22 sets, daily range): BP systolic 92–128; BP diastolic 45–69
[2020-07-13] MEDS: PROPOFOL 100 ML IV PRN ×11 (00:12→22:25)
[2020-07-13] MEDS: IV NORMAL SALINE 250 ML IV PRN (02:22)
[2020-07-13] MEDS: VECURONIUM BROMIDE 50 MG in IV NORMAL SALINE 50 ML IV PRN (03:47)
[2020-07-13] MEDS: CEFEPIME HCL 2 G in IV DEXTROSE 5% 100 ML IV SCH ×3 (03:54→20:21)
[2020-07-13] MEDS: DEXAMETHASONE SOD PHOSPHATE 4 MG INJ IV SCH ×3 (05:19→20:53)
[2020-07-13] MEDS: PANTOPRAZOLE ORAL SUSPENSION 40 MG SUSPDR.PKT NG SCH (05:19)
--- NOTE | 2020-07-13 06:00 | NUR ---
sedated currently on ac 30 tv 500 p 12 80 fio2% , propofol at 80 mcg , fentanyl at 130 mcg , versed at 7 mg , vecuronium at 0.2 mcg , feeding held as per order , placement and and residual checked , nothing noted , no fever , suctioned orally with thick yellow secretions , current blood pressure is 123/ 67 , hr of 87 , rr 30 , 100 oxygen saturation , soto and picc and lid line, flexi seal intact intact
[2020-07-13 06:01] LABS: ABG HCO3 31.3 mmol/L; ABG PCO2 86.1 mmHg (35.0-45.0); ABG PH 7.178 (7.350-7.450); ABG PO2 100.7 mmHg (75.0-100.0); ABG SITE RIGHT RADIAL; ABG TOTAL HEMOGLOBIN 11.1 G/dL (13.5-18.0); COHb 0.8 % (0.5-1.5); MetHb 0.6 % (0.0-1.5); O2Hb 96.1 % (94.0-97.0); VENT MODE VENT - A/C; VT, ABG 500 mL
--- NOTE | 2020-07-13 06:20 | NUR ---
dr anguiano was notified of critical abg results this morning , history and current medications and vent settings endoorsed , received order of sodium bicarb 1 amp now then d5w + 2 ampules of sodium bicarb at 50 ml /hr
[2020-07-13] MEDS ORDERED: SODIUM BICARBONATE 8.4% 50 MEQ/50 ML DISP.SYRIN IV ONE ×2 (06:30→06:54)
[2020-07-13] MEDS: INSULIN REGULAR, HUMAN 300 UNIT/3 ML VIAL SQ PRN (06:33)
[2020-07-13] MEDS: BLOOD SUGAR DIAGNOSTIC 1 EACH STRIP VI SCH ×3 (06:33→17:51)
--- NOTE | 2020-07-13 07:15 | NUR ---
Pulmonary services, Dr. Roach in the unit to see and examine pt. report given and orders to titrate off vecuronium received. As stated "goal is to have pt. off vecuronium today"
[2020-07-13 07:17] LABS: BASOPHILS # (AUTO) 0.1 K/uL (0.0-8.0); BASOPHILS % (AUTO) 0.7 % (0.0-2.0); EOSINOPHILS % (AUTO) 0.3 % (0.0-7.0); HEMATOCRIT 29.8 % (36.7-47.1); HEMOGLOBIN 9.6 g/dL (12.5-16.3); LYMPHOCYTES # (AUTO) 1.2 K/uL (20.0-40.0); LYMPHOCYTES % (AUTO) 9.2 % (20.5-51.5); MEAN CORPUSCULAR HEMOGLOBIN 30.9 uug (23.8-33.4); MEAN CORPUSCULAR HGB CONC 32 g/dL (32.5-36.3); MEAN CORPUSCULAR VOLUME 95.5 fL (73.0-96.2); MONOCYTES # (AUTO) 0.7 K/uL (2.0-10.0); MONOCYTES % (AUTO) 5.3 % (0.0-11.0); NEUTROPHILS # (AUTO) 10.6 K/uL (1.8-8.9); NEUTROPHILS % (AUTO) 84.5 % (38.5-71.5); PLATELET COUNT (AUTO) 143 K/uL (152-348); RED BLOOD CELL COUNT(AUTO) 3.12 MIL/uL (4.06-5.63); WHITE BLOOD COUNT (AUTO) 12.5 K/uL (3.6-10.2)
[2020-07-13 07:19] LABS: CREATININE 2.6 mg/dL (0.6-1.3); MAGNESIUM 2.8 mg/dL (1.8-2.4); PHOSPHOROUS 7.1 mg/dL (2.5-4.9); POTASSIUM 5.2 mmol/L (3.5-5.1)
[2020-07-13] MEDS: SODIUM BICARBONATE 8.4% 50 MEQ in IV D5W 1000ML 1,000 ML IV PRN (08:17)
[2020-07-13] MEDS: PROTEIN SUPPLEMENT (PROSTAT) 30 ML LIQUID GT SCH ×3 (08:24→17:22)
[2020-07-13] MEDS: METHIMAZOLE 5 MG TABLET NG SCH (08:24)
[2020-07-13] MEDS: DOCUSATE SODIUM 100 MG/10 ML LIQUID UDC NG SCH (08:25)
[2020-07-13] MEDS: FENTANYL CITRAT IV PRN (10:52)
[2020-07-13] MEDS: NORMAL SALINE IV PRN (10:52)
[2020-07-13] MEDS: MORPHINE SULFATE 2 MG/1 ML DISP.SYRIN IV PRN (10:55)
[2020-07-13] MEDS: MIDAZOLAM HCL 50 MG in IV NORMAL SALINE 40 ML IV PRN (16:37)
--- NOTE | 2020-07-13 17:37 | NUR ---
Residual check at this time and total of 120 obtained attending notified.
[2020-07-13] MEDS: MINERAL OIL/PETROLAT OPHT OINT 3.5 GM TUBE EACHEYE PRN (17:58)
[2020-07-13 20:30] LABS: *BILIRUBIN,URIN NEGATIVE (NEGATIVE); *CLARITY,URINE CLEAR (CLEAR); *COLOR,URINE YELLOW (YELLOW); *KETONES,URINE NEGATIVE (NEGATIVE); *UROBILINOGEN,URINE 0.2 E.U./dl (NORMAL); LEUKOCYTE ESTERASE ,URINE NEGATIVE (NEGATIVE); NITRITE, URINE NEGATIVE (NEGATIVE); PH,URINE 5.5 (5.0-8.0); UGLUCOSE NEGATIVE (NEGATIVE)
[2020-07-13 20:31] LABS: *CREATININE,URINE 43.1 mg/dL (30-125); *URINE TOTAL PROTEIN RANDOM 225.3 mg/dL (<150/24HR)
[2020-07-13 20:37] LABS: *BLOOD, URINE TRACE INTACT (NEGATIVE)
[2020-07-13] MEDS: SENNOSIDES 1 TABLET NG SCH (20:53)
[2020-07-13] MEDS: ENOXAPARIN SODIUM 40 MG/0.4 ML DISP.SYRIN SQ SCH (20:54)
[2020-07-13 22:34] LABS: BACTERIA,URINE NONE SEEN /HPF (NONE SEEN); SQUAMOUS EPITHELIAL CELL,UR MODERATE /HPF (NONE SEEN); WBC,URINE 0-3 /HPF (0-3)
[2020-07-13 22:44] LABS: EOSINOPHILS % (MANUAL) 2 % (0-8); LYMPHOCYTES % (MANUAL) 10 % (20-40); MONOCYTES % (MANUAL) 6 % (2-10); NEUTROPHILS % (MANUAL) 82 % (42-75)
[2020-07-14] VITALS (24 sets, daily range): BP systolic 87–113; BP diastolic 43–62
[2020-07-14] MEDS: BLOOD SUGAR DIAGNOSTIC 1 EACH STRIP VI SCH ×4 (00:30→17:47)
[2020-07-14] MEDS: PROPOFOL 100 ML IV PRN ×9 (01:31→22:56)
[2020-07-14] MEDS: MIDAZOLAM HCL 50 MG in IV NORMAL SALINE 40 ML IV PRN ×3 (02:18→21:41)
[2020-07-14] MEDS: CEFEPIME HCL 2 G in IV DEXTROSE 5% 100 ML IV SCH ×2 (04:20→11:58)
[2020-07-14 05:23] LABS: ABG BASE EXCESS -1.8 mmol/L; ABG HCO3 28.1 mmol/L; ABG PCO2 82.9 mmHg (35.0-45.0); ABG PH 7.148 (7.350-7.450); ABG PO2 79.3 mmHg (75.0-100.0); ABG SITE RIGHT RADIAL; ABG TOTAL HEMOGLOBIN 9.6 G/dL (13.5-18.0); MetHb 0.6 % (0.0-1.5); O2Hb 92.6 % (94.0-97.0); VENT MODE VENT - A/C; VT, ABG 500 mL
[2020-07-14] MEDS: DEXAMETHASONE SOD PHOSPHATE 4 MG INJ IV SCH ×3 (05:39→20:57)
[2020-07-14] MEDS: PANTOPRAZOLE ORAL SUSPENSION 40 MG SUSPDR.PKT NG SCH (05:39)
[2020-07-14 05:50] LABS: BASOPHILS % (AUTO) 0.3 % (0.0-2.0); EOSINOPHILS # (AUTO) 0.1 K/uL (0.0-0.7); EOSINOPHILS % (AUTO) 0.4 % (0.0-7.0); HEMATOCRIT 28.2 % (36.7-47.1); LYMPHOCYTES # (AUTO) 1.3 K/uL (20.0-40.0); LYMPHOCYTES % (AUTO) 8.5 % (20.5-51.5); MEAN CORPUSCULAR HGB CONC 32 g/dL (32.5-36.3); MEAN CORPUSCULAR VOLUME 93.9 fL (73.0-96.2); MONOCYTES # (AUTO) 0.6 K/uL (2.0-10.0); MONOCYTES % (AUTO) 3.9 % (0.0-11.0); NEUTROPHILS # (AUTO) 13.1 K/uL (1.8-8.9); NEUTROPHILS % (AUTO) 86.9 % (38.5-71.5); PLATELET COUNT (AUTO) 127 K/uL (152-348); WHITE BLOOD COUNT (AUTO) 15.1 K/uL (3.6-10.2)
[2020-07-14 05:59] LABS: BILIRUBIN,TOTAL 0.7 mg/dL (0.2-1.0); CREATININE 4.3 mg/dL (0.6-1.3); MAGNESIUM 2.7 mg/dL (1.8-2.4); POTASSIUM 4.7 mmol/L (3.5-5.1); TOTAL PROTEIN, SERUM 6.7 g/dL (6.4-8.2)
[2020-07-14 06:06] LABS: PHOSPHOROUS 8.7 mg/dL (2.5-4.9)
[2020-07-14] MEDS: SODIUM BICARBONATE 8.4% 50 MEQ in IV D5W 1000ML 1,000 ML IV PRN (07:11)
--- NOTE | 2020-07-14 07:20 | NUR ---
As per report this morning pt. with only 35cc of urine output for the last 12 hours. Nephrology services, Dr. Ryan called to report event.
[2020-07-14] MEDS: NORMAL SALINE IV PRN (07:36)
[2020-07-14] MEDS: FENTANYL CITRAT IV PRN (07:36)
[2020-07-14] MEDS: DOCUSATE SODIUM 100 MG/10 ML LIQUID UDC NG SCH (08:02)
[2020-07-14] MEDS: METHIMAZOLE 5 MG TABLET NG SCH (08:03)
[2020-07-14] MEDS: PROTEIN SUPPLEMENT (PROSTAT) 30 ML LIQUID GT SCH ×3 (08:03→17:39)
--- NOTE | 2020-07-14 08:17 | NUR ---
pulmonary services, Dr. Bethea in the unit to see and examine pt. report given orders to continue care plan. also informed of decreased urine output. As per Md. "continue with current vent setting".
[2020-07-14] MEDS ORDERED: BUMETANIDE INJ 6 MG in IV DEXTROSE 5% 36 ML IV ONE (09:30)
[2020-07-14] MEDS ORDERED: SEVELAMER CARBONATE 800 MG POWD.PACK GT ONE (09:30)
[2020-07-14] MEDS ORDERED: VITAMINS A AND D OINT TP PRN (18:15)
[2020-07-14] MEDS: SODIUM BICARBONATE 8.4% 100 MEQ in IV D5W 1000ML 1,000 ML IV PRN (18:55)
[2020-07-14] MEDS: ENOXAPARIN SODIUM 40 MG/0.4 ML DISP.SYRIN SQ SCH (20:52)
[2020-07-14] MEDS: SENNOSIDES 1 TABLET NG SCH (20:55)
[2020-07-14] MEDS: Z GUARD REMEDY PASTE 57 GM TUBE TOP SCH (20:57)
[2020-07-15] VITALS (73 sets, daily range): BP systolic 56–121; BP diastolic 29–74
[2020-07-15] MEDS: BLOOD SUGAR DIAGNOSTIC 1 EACH STRIP VI SCH ×5 (00:03→23:43)
[2020-07-15] MEDS: PROPOFOL 100 ML IV PRN ×5 (00:55→13:41)
[2020-07-15] MEDS: FENTANYL CITRAT IV PRN ×2 (02:33→20:36)
[2020-07-15] MEDS: NORMAL SALINE IV PRN ×2 (02:33→20:36)
[2020-07-15] MEDS: MIDAZOLAM HCL 50 MG in IV NORMAL SALINE 40 ML IV PRN ×3 (04:36→20:32)
[2020-07-15] MEDS ORDERED: NOREPINEPHRINE BITARTRATE 4 MG/4 ML VIAL IV ONE (04:53)
[2020-07-15 04:56] LABS: BASOPHILS # (AUTO) 0.2 K/uL (0.0-8.0); BASOPHILS % (AUTO) 0.8 % (0.0-2.0); EOSINOPHILS % (AUTO) 0.1 % (0.0-7.0); HEMATOCRIT 26.4 % (36.7-47.1); HEMOGLOBIN 8.9 g/dL (12.5-16.3); LYMPHOCYTES # (AUTO) 1.2 K/uL (20.0-40.0); LYMPHOCYTES % (AUTO) 5.4 % (20.5-51.5); MEAN CORPUSCULAR HEMOGLOBIN 31.8 uug (23.8-33.4); MEAN CORPUSCULAR HGB CONC 34 g/dL (32.5-36.3); MEAN CORPUSCULAR VOLUME 94.1 fL (73.0-96.2); MONOCYTES # (AUTO) 0.8 K/uL (2.0-10.0); MONOCYTES % (AUTO) 3.6 % (0.0-11.0); NEUTROPHILS # (AUTO) 19.8 K/uL (1.8-8.9); NEUTROPHILS % (AUTO) 90.1 % (38.5-71.5); PLATELET COUNT (AUTO) 143 K/uL (152-348); WHITE BLOOD COUNT (AUTO) 21.9 K/uL (3.6-10.2)
[2020-07-15 05:00] LABS: ABG BASE EXCESS -4.9 mmol/L; ABG HCO3 26.6 mmol/L; ABG PCO2 99.6 mmHg (35.0-45.0); ABG PH 7.045 (7.350-7.450); ABG PO2 81.2 mmHg (75.0-100.0); ABG SITE LEFT RADIAL; ABG TOTAL HEMOGLOBIN 9.4 G/dL (13.5-18.0); COHb 1.1 % (0.5-1.5); MetHb 0.7 % (0.0-1.5); O2Hb 91.5 % (94.0-97.0); VENT MODE VENT - A/C; VT, ABG 500 mL
[2020-07-15 05:25] LABS: MAGNESIUM 2.9 mg/dL (1.8-2.4); POTASSIUM 5.9 mmol/L (3.5-5.1)
--- NOTE | 2020-07-15 05:35 | NUR ---
Dr Allison notified of ABG results. FiO2 100%, A/C 30. Resumed Levophed gtt. We are to report to MD's on rounds this AM: including critical labs if any.
[2020-07-15 05:37] LABS: BILIRUBIN,DIRECT 0.5 mg/dL (0.0-0.2); BILIRUBIN,TOTAL 1.3 mg/dL (0.2-1.0); TOTAL PROTEIN, SERUM 7.1 g/dL (6.4-8.2)
[2020-07-15] MEDS: DEXAMETHASONE SOD PHOSPHATE 4 MG INJ IV SCH ×3 (05:52→21:43)
[2020-07-15] MEDS: PANTOPRAZOLE ORAL SUSPENSION 40 MG SUSPDR.PKT NG SCH (05:52)
[2020-07-15 06:30] LABS: PHOSPHOROUS 10.9 mg/dL (2.5-4.9)
--- NOTE | 2020-07-15 07:50 | NUR ---
Pulmonary services, Dr. Roach in the unit to see and examine pt. Report given and orders received and implemented at 0830 PEE increased to 15 patient restarted on paralytics TOF at level 5 is 09/01 med. started at 0.8mcg/kg/min. will continue to monitor. Addendum: 07/15/20 at 0906 by MICHELLE MISHRA RN orders to titrate pt. off propofol due to high triglyceride levels.
[2020-07-15] MEDS: VECURONIUM BROMIDE 50 MG in IV NORMAL SALINE 50 ML IV PRN ×3 (07:54→21:59)
--- NOTE | 2020-07-15 08:30 | NUR ---
Cardiology services, Dr. Slaughter in the unit to see and examine pt. both annealing torch operator and terminologist discussed pt's care plan. Orders to continue with care plan received.
[2020-07-15] MEDS: NOREPINEPHRINE BITARTRATE 32 MG in IV NORMAL SALINE 218 ML IV PRN ×3 (09:17→20:53)
--- NOTE | 2020-07-15 09:30 | NUR ---
Nephrology services, Dr. Mason in the unit to see and examine pt. full update on pt's condition given also provided with pt's number for an up date and to discuss possible manish and possible HD. procedure today. also informed that Welder Fabricator Dr. Roach had already texted care plan with Dr. Pa.
[2020-07-15] MEDS: DOCUSATE SODIUM 100 MG/10 ML LIQUID UDC NG SCH (10:09)
[2020-07-15] MEDS: METHIMAZOLE 5 MG TABLET NG SCH (10:09)
[2020-07-15] MEDS: PROTEIN SUPPLEMENT (PROSTAT) 30 ML LIQUID GT SCH ×3 (10:11→17:00)
[2020-07-15] MEDS: Z GUARD REMEDY PASTE 57 GM TUBE TOP SCH ×2 (10:12→20:34)
[2020-07-15] MEDS: BISACODYL 5 MG TABLET.DR PO PRN (10:12)
--- NOTE | 2020-07-15 13:30 | NUR ---
Spoke with Dona PEREZ an an eta between 1415 and 1530 for Zach catheter placement orders received and item obtained in preparation for procedure.
[2020-07-15] MEDS: MINERAL OIL/PETROLAT OPHT OINT 3.5 GM TUBE EACHEYE PRN (14:21)
[2020-07-15] MEDS: SODIUM BICARBONATE 8.4% 100 MEQ in IV D5W 1000ML 1,000 ML IV PRN (15:24)
[2020-07-15 15:29] LABS: LYMPHOCYTES % (MANUAL) 5 % (20-40); MONOCYTES % (MANUAL) 4 % (2-10); NEUTROPHILS % (MANUAL) 91 % (42-75)
[2020-07-15] MEDS ORDERED: CEFEPIME HCL 1 G in IV DEXTROSE 5% 50 ML IV SCH (16:00)
[2020-07-15] MEDS ORDERED: VANCOMYCIN IV 1,500 MG in IV DEXTROSE 5% 500 ML IV ONE ×2 (16:00→23:00)
--- NOTE | 2020-07-15 16:09 | NUR ---
A call to Dona Reza and as stated "running late and procedure time changed to around 1730"
--- NOTE | 2020-07-15 16:15 | NUR ---
Around this time pt. with desaturation down to 82% suctioning and lavage per rn. with saturation up to 88% not within desire limit RT called for deeper lavage. 1710 for the last hour patient saturation not improving despite efforts. Attending Dr. Walsh called to be notified and also informed of delay of manish catheter insertion.
--- NOTE | 2020-07-15 16:50 | NUR ---
a call from HD rn to inquire about manish insertion catheter she was informed that procedure will take place at around 1730 as stated by Dona Sen.
--- NOTE | 2020-07-15 17:28 | NUR ---
A call to women's studies professor Dr. Slaughter and update given, orders to start pt. on norepinephrine received.
[2020-07-15] MEDS ORDERED: NOREPINEPHRINE BITARTRATE 32 MG in IV NORMAL SALINE 218 ML IV PRN (17:30)
--- NOTE | 2020-07-15 17:41 | NUR ---
1740 CHRIS vidal at bedside for manish catheter insertion, HD supervisor press room called for stat Hemodialysis.
[2020-07-15] MEDS: PHENYLEPHRINE IV 100 MG in IV NORMAL SALINE 240 ML IV PRN (17:55)
--- NOTE | 2020-07-15 18:04 | NUR ---
HD catheter placed on [facility] femoral area. and as per PA pt ready to dialysis.
--- NOTE | 2020-07-15 19:15 | NUR ---
RECEIVED PT REMAINS ORALLY INTUBATED W/ SETTINGS OF AC-30,TV-500, FIO2-100%, PEEP-+15 W/ O2 SAT OF 86%. SUCTIONED W/ SMALL THICK BLOODY MUCOUS & WAS LAVAGE. ON VERSED DRIP @ 8MG/HR. FENTANYL DRIP @ 160MCQ/HR.VECURONIUM BROMIDE @ 1MCQ/KG/MIN , TOF SITE FACIAL, TOF LEVEL 6 ,TOF RESPONSE 3/4.ALL SEDATIONS VIA PICC LINE ON NIMCO. ON LEVOPHED DRIP @ 1MCQ/KG/MIN, NEOSYNEPHRINE DRIP @ 1.1MCQ/KG/MIN VIA MIDLINE ON NENA. IVF D5W W/ SODIUM BICARB 8.4%100MEQ @ 50CC/HR. OFF TUBE FDG PT ON SUPINE W/ HOB LOW. AFEBRILE.
[2020-07-15] MEDS ORDERED: VASOPRESSIN 40 UNIT in IV NORMAL SALINE 40 ML IV PRN (19:30)
--- NOTE | 2020-07-15 19:30 | NUR ---
HEMODIALYSIS STARTED ON R MITRA BUCK CATH .CALLED DR ALBERT FOR ANOTHER PRESSOR VASORESSIN PRN.
--- NOTE | 2020-07-15 19:40 | NUR ---
UPDATED FAMILY ON PT. STATUS & ABLE TO FACETIME WITH THEM. FAMILY DECIDED FULL CODE STATUS AT THIS TIME.
--- NOTE | 2020-07-15 19:45 | NUR ---
DR ALBERT WAS HERE & UPDATED OF PT STATUS.
[2020-07-15] MEDS: SENNOSIDES 1 TABLET NG SCH (20:27)
[2020-07-15] MEDS: HEPARIN SODIUM,PORCINE 5,000 UNITS/ML VIAL SQ SCH (20:33)
[2020-07-15] MEDS ORDERED: ENOXAPARIN SODIUM 40 MG/0.4 ML DISP.SYRIN SQ SCH (21:00)
--- NOTE | 2020-07-15 22:20 | NUR ---
HEMODIALYSIS IS DONE. NO FLUIDS REMOVED.
[2020-07-16] VITALS (69 sets, daily range): BP systolic 0–104; BP diastolic 0–61
[2020-07-16] MEDS: NOREPINEPHRINE BITARTRATE 32 MG in IV NORMAL SALINE 218 ML IV PRN ×4 (01:46→15:48)
[2020-07-16] MEDS: PHENYLEPHRINE IV 100 MG in IV NORMAL SALINE 240 ML IV PRN ×3 (02:48→14:17)
--- NOTE | 2020-07-16 04:00 | NUR ---
AM CARE DONE. SUCTIONED VIA ETT & ORALLY & LAVAGED W/ COLD NS
[2020-07-16] MEDS: MIDAZOLAM HCL 50 MG in IV NORMAL SALINE 40 ML IV PRN ×2 (04:12→12:25)
[2020-07-16 05:01] LABS: BASOPHILS # (AUTO) 0.1 K/uL (0.0-8.0); BASOPHILS % (AUTO) 0.4 % (0.0-2.0); EOSINOPHILS # (AUTO) 0.1 K/uL (0.0-0.7); EOSINOPHILS % (AUTO) 0.2 % (0.0-7.0); HEMATOCRIT 25.1 % (36.7-47.1); HEMOGLOBIN 8.2 g/dL (12.5-16.3); LYMPHOCYTES # (AUTO) 2.8 K/uL (20.0-40.0); LYMPHOCYTES % (AUTO) 9.2 % (20.5-51.5); MEAN CORPUSCULAR HEMOGLOBIN 30.6 uug (23.8-33.4); MEAN CORPUSCULAR HGB CONC 33 g/dL (32.5-36.3); MEAN CORPUSCULAR VOLUME 94.1 fL (73.0-96.2); MONOCYTES # (AUTO) 1.5 K/uL (2.0-10.0); MONOCYTES % (AUTO) 5.1 % (0.0-11.0); NEUTROPHILS # (AUTO) 25.4 K/uL (1.8-8.9); NEUTROPHILS % (AUTO) 85.1 % (38.5-71.5); PLATELET COUNT (AUTO) 249 K/uL (152-348); RED BLOOD CELL COUNT(AUTO) 2.67 MIL/uL (4.06-5.63)
[2020-07-16] MEDS: PANTOPRAZOLE ORAL SUSPENSION 40 MG SUSPDR.PKT NG SCH (05:24)
[2020-07-16] MEDS: DEXAMETHASONE SOD PHOSPHATE 4 MG INJ IV SCH ×2 (05:31→14:02)
[2020-07-16 05:34] LABS: BILIRUBIN,TOTAL 1.6 mg/dL (0.2-1.0); CREATININE 4.7 mg/dL (0.6-1.3); MAGNESIUM 2.5 mg/dL (1.8-2.4); TOTAL PROTEIN, SERUM 6.7 g/dL (6.4-8.2); VANCOMYCIN,RANDOM 46.3 ug/mL (18.0-26.0)
[2020-07-16] MEDS: BLOOD SUGAR DIAGNOSTIC 1 EACH STRIP VI SCH ×2 (05:39→12:08)
[2020-07-16 05:40] LABS: WHITE BLOOD COUNT (AUTO) 29.9 K/uL (3.6-10.2)
[2020-07-16 05:41] LABS: PHOSPHOROUS 8.8 mg/dL (2.5-4.9)
[2020-07-16] MEDS: VECURONIUM BROMIDE 50 MG in IV NORMAL SALINE 50 ML IV PRN ×2 (05:51→14:25)
[2020-07-16 06:15] LABS: ABG BASE EXCESS -1.9 mmol/L; ABG HCO3 30.4 mmol/L; ABG PCO2 127.2 mmHg (35.0-45.0); ABG PH 6.996 (7.350-7.450); ABG PO2 42.6 mmHg (75.0-100.0); ABG SITE RIGHT RADIAL; COHb 1.9 % (0.5-1.5); MetHb 0.9 % (0.0-1.5); O2Hb 67.7 % (94.0-97.0); VENT MODE VENT - A/C; VT, ABG 500 mL
[2020-07-16 06:20] LABS: BAND % (MANUAL) 14 % (0-10); LYMPHOCYTES % (MANUAL) 5 % (20-40); METAMYELOCYTES % 2 % (0-1); MONOCYTES % (MANUAL) 3 % (2-10); MYELOCYTES % 1 % (0-0)
[2020-07-16 06:21] LABS: NEUTROPHILS % (MANUAL) 75 % (42-75)
--- NOTE | 2020-07-16 06:33 | NUR ---
STARTED VASOPRESSIN DRIP @ 0.01 UNIT/MIN FOR MAP 0F 58.
--- NOTE | 2020-07-16 06:59 | NUR ---
ABG RESULTS CALLED TO DR. HOOK NO ORDER RECEIVED.
[2020-07-16] MEDS ORDERED: VANCOMYCIN IV 500 MG in IV DEXTROSE 5% 100 ML IV PRN (07:15)
--- NOTE | 2020-07-16 07:15 | NUR ---
Received report from shift superintendent nurse, patient in bed on low airloss mattress, Intubated with ETT 7.5 settings a/c 30, TV 500, fio2 100%, Peep 15. saturation of 64% at this time. Sinus tachycardia on the monitor, BP 73/48 increasing vasopressin drip to 0.04mcg/kg/min. Levophed @1mcg/kg/min, neosynephrine 3mcg/kg/min, bicarb drip running at 50ml/hr, along with norcuron 1mcg, fentanyl 160mcg, versed 8 mg. Tube feeding on hold as ordered, soto has scant urine in tube, flexiseal in place and draining appropriately. Contacting Dr. Michael Taylor for orders of 4th IV vasopressors.
--- NOTE | 2020-07-16 07:30 | NUR ---
Patient seen by Dr. Soliman, notified him that the family needs to be contacted and visitation arranged for declining patient condition.
--- NOTE | 2020-07-16 07:40 | NUR ---
Ivan Hay at bedside to assist with orders as no return call from Dr. Taylor at this time. Received orders for Dopamine drip titrate to keep map greater than 60.
[2020-07-16] MEDS: PROTEIN SUPPLEMENT (PROSTAT) 30 ML LIQUID GT SCH ×2 (07:59→12:30)
[2020-07-16] MEDS: DOCUSATE SODIUM 100 MG/10 ML LIQUID UDC NG SCH (07:59)
[2020-07-16] MEDS: METHIMAZOLE 5 MG TABLET NG SCH (07:59)
[2020-07-16] MEDS: HEPARIN SODIUM,PORCINE 5,000 UNITS/ML VIAL SQ SCH (08:02)
[2020-07-16] MEDS: Z GUARD REMEDY PASTE 57 GM TUBE TOP SCH (08:03)
[2020-07-16] MEDS: DOPamine IV DRIP 400 MG/250ML 250 ML IV PRN ×4 (08:11→15:34)
--- NOTE | 2020-07-16 08:25 | NUR ---
Patient seen by Dr. Acosta.
[2020-07-16] MEDS ORDERED: LEVOTHYROXINE SODIUM 100 MCG VIAL IV SCH (09:45)
--- NOTE | 2020-07-16 09:45 | NUR ---
Dialysis nurse arrived to unit stating he was here to dialyze patient. No orders for dialysis in computer for this patient today. This teletypewriter operator notified dialysis nurse Calixto "not you", and contacted Back Up Worker Richar and notified him of patients condition and instability and need for cautious/slow dialysis and requested a different dialysis nurse. Dialysis nurse was informed that Richar had been called.
--- NOTE | 2020-07-16 09:57 | NUR ---
Dr Soliman and Associate Project Manager was notified that this literary writer was uncomfortable with the patients instability and that a new dialysis nurse had been requested from Dialysis supervisor garage Richar due to patient safety concerns. No response from Dr. Soliman at this time.
--- NOTE | 2020-07-16 11:45 | NUR ---
Dr Taylor notified that the intention is to possibly do dialysis today, Dr. Taylor stated that he will speak with Dr. Soliman and that patient is too unstable for dialysis.
[2020-07-16] MEDS: NORMAL SALINE IV PRN (12:41)
[2020-07-16] MEDS: FENTANYL CITRAT IV PRN (12:41)
--- NOTE | 2020-07-16 13:00 | NUR ---
Independent Living Instructor Note: 10:30am: SW was informed by REHANA Jimenez that the family is request a letter which states that patient is currently hospitalized. BETHANIE prepared this letter, reviewed it with Dust Box Worker Ana Maria, and the letter was provided to the family by Dust Box Worker Ana Maria. Independent Living Instructor will remain available, as needed.
[2020-07-16] MEDS: SODIUM BICARBONATE 8.4% 100 MEQ in IV D5W 1000ML 1,000 ML IV PRN (13:32)
[2020-07-16] MEDS: ACETAMINOPHEN 325 MG TABLET PO PRN (14:06)
--- NOTE | 2020-07-16 14:16 | NUR ---
Dr Taylor notified that patient has a fever of 100.5 at this time.
--- NOTE | 2020-07-16 15:05 | NUR ---
Contacted Dr. Acosta to notify of declining BP despite all IV vasopressors max, order received for epinephrine drip.
[2020-07-16] MEDS ORDERED: EPINEPHRINE AMP 5 MG in IV NORMAL SALINE 245 ML IV PRN (15:15)
--- NOTE | 2020-07-16 15:18 | NUR ---
Patients Heart rate rapidly declining into 97BPM from sinus tachycardia. Patient placed on defibrilator and back board brought to bedside. Notified RT for preparation of Code.
--- NOTE | 2020-07-16 15:42 | NUR ---
Patient in junctional rhythm with pulse, and became asystolic with no pulse. Code Blue called and compressions started immediately. 1543 Epinephrine administered 1545 Pulse check = no pulse cpr continued. 1546 Epinephrine administered 1548 Sodium Bicarbonate administered 1550 Epinephrine administered 1551 Calcium Administered 1552 Pulse check continued to be absent and asystolic 1553 Epinephrine Administered 1554 Pulse not palpable and asystolic on the monitor. 1555 Epinephrine Administered 1557 Pulse check revealed no palpable pulse, and patient asystolic on the monitor. Patient pronounced by Dr. Lam.
--- NOTE | 2020-07-16 15:42 | NUR ---
"[facility]" CALLED, RT'S BEDSIDE AT ONSET OF CODE, INITIATING CPR WITHOUT DELAY, PT REMOVED FROM VENT AND PROVIDING VENTILATION VIA HAND BAGGING WITH PEEP VALVE. RT'S SWITCHING CHEST COMPRESSING EVERY PULSE CHECK TILL CODE WAS STOPPED BY ER .
--- NOTE | 2020-07-16 16:02 | NUR ---
Patient has been asystolic for one minute on the monitor, no palpable pulses, no audible heart tones, Respirations are absent for 5 minutes, no breath sounds auscultated, no pupilary response, pupils fixed ad dilated, nonresponsive. Patient pronounced by Dr. Henry, please refer to documentation.
[2020-07-16] MEDS ORDERED: MEROPENEM 0.5 G in IV NORMAL SALINE 50 ML IV SCH (16:30)
--- NOTE | 2020-07-16 17:39 | NUR ---
[facility] will not be seeking organ donation at this time and releases body with [id number] reference number.
[2020-07-16] MEDS ORDERED: VANCOMYCIN FOR PO/GT/NG USE PO SCH (18:00)
--- NOTE | 2020-07-16 20:15 | NUR ---
PT. BODY TO [facility].
[2020-07-16] MEDS ORDERED: CEFEPIME HCL 0.5 G in IV DEXTROSE 5% 50 ML IV SCH (21:00)
[2020-07-16] MEDS ORDERED: MEROPENEM 1 G in IV NORMAL SALINE 100 ML IV SCH (22:00)
== END 2020-07-16 15:57 | disposition expired | DRG 720 ==
LOC: ER 23:12 → TRANSITION 06-18 07:00 → TELE3 06-18 12:41 → TELE 06-24 17:31 → CCU 07-03 12:54
PROVIDERS: ADMIT Student in an Organized Health Care Education/Training Program
PROC: XW033E5 Introduction of Remdesivir Anti-infective into Peripheral Vein, Percutaneous Approach, New Technology Group 5 (ICD-10-PCS; principal; 2020-06-18)
PROC: XW13325 Transfusion of Convalescent Plasma (Nonautologous) into Peripheral Vein, Percutaneous Approach, New Technology Group 5 (ICD-10-PCS; 2020-06-19)
PROC: 05HY33Z Insertion of Infusion Device into Upper Vein, Percutaneous Approach (ICD-10-PCS; 2020-06-21)
PROC: 5A1955Z Respiratory Ventilation, Greater than 96 Consecutive Hours (ICD-10-PCS; 2020-07-03)
PROC: 0BH17EZ Insertion of Endotracheal Airway into Trachea, Via Natural or Artificial Opening (ICD-10-PCS; 2020-07-03)
PROC: B548ZZA Ultrasonography of Superior Vena Cava, Guidance (ICD-10-PCS; 2020-07-04)
PROC: 02HV33Z Insertion of Infusion Device into Superior Vena Cava, Percutaneous Approach (ICD-10-PCS; 2020-07-04)
PROC: 5A1D70Z Performance of Urinary Filtration, Intermittent, Less than 6 Hours Per Day (ICD-10-PCS; 2020-07-15)
PROC: 02HV33Z Insertion of Infusion Device into Superior Vena Cava, Percutaneous Approach (ICD-10-PCS; 2020-07-15)
PROC: 5A12012 Performance of Cardiac Output, Single, Manual (ICD-10-PCS; 2020-07-16)
DX: A41.89 Other specified sepsis (principal); U07.1 COVID-19; J12.82 Pneumonia due to coronavirus disease 2019; J96.01 Acute respiratory failure with hypoxia; F17.210 Nicotine dependence, cigarettes, uncomplicated; J15.9 Unspecified bacterial pneumonia; D50.0 Iron deficiency anemia secondary to blood loss (chronic); N17.0 Acute kidney failure with tubular necrosis; D68.69 Other thrombophilia; E03.9 Hypothyroidism, unspecified; E05.90 Thyrotoxicosis, unspecified without thyrotoxic crisis or storm; E43 Unspecified severe protein-calorie malnutrition; E78.1 Pure hyperglyceridemia; E83.39 Other disorders of phosphorus metabolism; G92 Toxic encephalopathy; J96.02 Acute respiratory failure with hypercapnia; K59.00 Constipation, unspecified; K85.90 Acute pancreatitis without necrosis or infection, unspecified; R65.21 Severe sepsis with septic shock; E66.9 Obesity, unspecified; Z68.36 Body mass index [BMI] 36.0-36.9, adult; R74.01 Elevation of levels of liver transaminase levels; R00.0 Tachycardia, unspecified; K76.0 Fatty (change of) liver, not elsewhere classified; E22.2 Syndrome of inappropriate secretion of antidiuretic hormone; E87.5 Hyperkalemia
CPT/HCPCS: 36415; 36569; 36600; 70030-TC; 71045; 71275; 74018; 76705; 76770; 82533; 82785; 83605; 83615; 83690; 83735; 83970; 84100; 84155; 84156; 84165; 84300; 84443; 84478; 84550; 85025; 85610; 85730; 86140; 86803; 86850; 86900; 86901; 87040; 87070; 87086; 87806; 92950; 93005; 94003; 94660; A4217; A4663; C9113; G0378; J0171; J0330; J0456; J0692; J1100; J1265; J1644; J1650; J1815; J1940; J1956; J2185; J2250; J2270; J2370; J2405; J3010; J3370; J3490; J3535; J7030; J7042; J7050; J7060; J7070; P9016-BL; P9017-BL; Q9967